=== PATIENT | female | born 1990 | race Caucasian/White ===

== ENCOUNTER 2017-09-25 19:03 | Emergency (ER) | payer OTHER ==
--- NOTE | 2017-09-25 19:36 | EDPHYS ---
Physician Documentation [facility] Name: Rosy Cote Age: 26 yrs Sex: Female : 1990 Arrival Date: 09/25/2017 Time: 19:04 Bed 23 Private MD: ED Physician Elbert Zheng HPI: 09/25 19:32 This 26 yrs old Female presents to ER via Ambulatory with complaints of Fall rn Injury, 15 week preg cramping. 19:32 Details of fall: The patient fell from an upright position, while walking. Onset: The rn symptoms/episode began/occurred just prior to arrival. Associated injuries: The patient sustained both knees. Severity of symptoms: At their worst the symptoms were mild, in the emergency department the symptoms are unchanged. The patient has not experienced similar symptoms in the past. at 15 weeks with previously confirmed IUP by U/S presents after falling onto knees, no abd trauma, states knees and legs are fine but felt mild abd cramping, no vaginal bleeding or leakage of fluid, has OB appt tomorrow. . 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 - Social history:: Smoking status: Patient/guardian denies using tobacco. - Family history:: not pertinent. - Hospitalizations: : No recent hospitalization is reported. ROS: 19:32 Constitutional: Negative for fever, chills, and weight loss, Eyes: Negative for injury, rn pain, redness, and discharge, Neck: Negative for injury, pain, and swelling, Cardiovascular: Negative for chest pain, palpitations, and edema, Respiratory: Negative for shortness of breath, cough, wheezing, and pleuritic chest pain, Abdomen/GI: Negative for nausea, vomiting, diarrhea, and constipation, Back: Negative for injury and pain, : Negative for injury, bleeding, discharge, and swelling, MS/Extremity: Negative for injury and deformity, Skin: Negative for injury, rash, and discoloration, Neuro: Negative for headache, weakness, numbness, tingling, and seizure. Exam: 19:32 Constitutional: This is a well developed, well nourished patient who is awake, alert, rn and in no acute distress. Head/Face: Normocephalic, atraumatic. Abdomen/GI: Soft, non-tender, with normal bowel sounds. No distension or tympany. No guarding or rebound. No evidence of tenderness throughout. Back: No spinal tenderness. No costovertebral tenderness. Full range of motion. MS/ Extremity: Pulses equal, no cyanosis. Neurovascular intact. Full, normal range of motion. Equal circumference. Neuro: Awake and alert, GCS 15, oriented to person, place, time, and situation. Cranial nerves II-XII grossly intact. Motor strength 5/5 in all extremities. Sensory grossly intact. Vital Signs: 19:10 BP 124 / 72; Pulse 97; Resp 18; Temp 97.8; Pulse Ox 100% on R/A; Weight 132.9 kg; aj Height 5 ft. 10 in. (177.80 cm); Pain 6/10; 19:42 BP 139 / 76; Pulse 90; Resp 17; Pulse Ox 99% on R/A; kr2 19:10 Body Mass Index 42.04 (132.90 kg, 177.80 cm) aj Procedures: 19:32 Ultrasound: Type: OB, performed by the emergency department physician, Good rn movement, good fluid, no evidence of uterine rupture/hematoma, placenta anterior, FHT 150, showed all images to patient and . . MDM: 19:19 Patient medically screened. rn 19:32 Differential diagnosis: knee contusion, abd cramping. Data reviewed: vital signs, rn nurses notes, radiologic studies, ultrasound, and as a result, I will discharge patient. Counseling: I had a detailed discussion with the patient and/or guardian regarding: the historical points, exam findings, and any diagnostic results supporting the discharge/admit diagnosis, radiology results, the need for outpatient follow up, to return to the emergency department if symptoms worsen or persist or if there are any questions or concerns that arise at home. Special discussion: I discussed with the patient/guardian in detail that at this point there is no indication for admission to the hospital. It is understood, however, that if the symptoms persist or worsen the patient needs to return immediately for re-evaluation. Administered Medications: No medications were administered Disposition: 09/25/17 19:35 Discharged to Home. Impression: Contusion of left knee, Contusion of right knee, Intrauterine , no complications. - Condition is Stable. - Discharge Instructions: Abdominal Pain During , Contusion, Medicines During , Knee Pain. - Medication Reconciliation Form, Thank You Letter, Antibiotic Education, Prescription Opioid Use form. - Follow up: Private Physician; When: As needed; Reason: Recheck today's complaints, Re-evaluation by your physician. - Problem is new. - Symptoms have improved. Signatures: Rossy Mirza RN RN Elbert Hanson MD MD rn Reaves, Karey, RN RN kr2
--- NOTE | 2017-09-25 19:36 | ER ---
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 Reports "cramping" in right hip. Denies vaginal bleeding. 19:10 Transition of care: patient was not received from another setting of care. Onset of aj symptoms was September 25, 2017. Care prior to arrival: None. 19:10 Method Of Arrival: Ambulatory 19:10 Acuity: VITA 3 Triage Assessment: 19:10 General: Appears in no apparent distress. comfortable, Behavior is calm, cooperative, aj appropriate for age. Pain: Complains of pain in right hip Pain currently is 6 out of 10 on a pain scale. Neuro: Level of Consciousness is awake, alert, obeys commands, Oriented to person, place, time, situation. Respiratory: Airway is patent Respiratory effort is even, unlabored, Respiratory pattern is regular, symmetrical. : Denies vaginal bleeding. Derm: Skin is intact, is healthy with good turgor, Skin is pink, warm \\T\\ dry. normal. 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 - Social history:: Smoking status: Patient/guardian denies using tobacco. - Family history:: not pertinent. - Hospitalizations: : No recent hospitalization is reported. Screenin:38 Abuse screen: Denies threats or abuse. Denies injuries from another. Nutritional kr2 screening: No deficits noted. Tuberculosis screening: No symptoms or risk factors identified. Fall Risk None identified. Assessment: 19:25 General: Appears in no apparent distress. comfortable, well groomed, well developed, kr2 well nourished, Behavior is calm, cooperative, appropriate for age. Pain: Complains of pain in right hip Pain currently is 5 out of 10 on a pain scale. Quality of pain is described as crampy, Pain began suddenly, Is continuous. Neuro: Level of Consciousness is awake, alert, obeys commands, Oriented to person, place, time, situation, Appropriate for age. Cardiovascular: Capillary refill < 3 seconds in bilateral fingers Patient's skin is warm and dry. Respiratory: Airway is patent Respiratory effort is even, unlabored, Respiratory pattern is regular, symmetrical. GI: Abdomen is flat, non-distended. : No signs and/or symptoms were reported regarding the genitourinary system. Reports she is 15 weeks , denies vaginal bleeding or vaginal pain. EENT: Oral mucosa is moist. Derm: Skin is intact, is healthy with good turgor, Skin is pink, warm \\T\\ dry. Musculoskeletal: Circulation, motion, and sensation intact. Vital Signs: 19:10 BP 124 / 72; Pulse 97; Resp 18; Temp 97.8; Pulse Ox 100% on R/A; Weight 132.9 kg; aj Height 5 ft. 10 in. (177.80 cm); Pain 6/10; 19:42 BP 139 / 76; Pulse 90; Resp 17; Pulse Ox 99% on R/A; kr2 19:10 Body Mass Index 42.04 (132.90 kg, 177.80 cm) ED Course: 19:04 Patient arrived in ED. es 19:10 Arm band placed on left wrist. Patient placed in an exam room. aj 19:11 Triage completed. aj 19:15 Paty Vang, MOJGAN is Primary Nurse. kr2 19:19 Elbert Zheng MD is Attending Physician. rn 19:38 Patient has correct armband on for positive identification. Bed in low position. Call kr2 light in reach. Side rails up X 1. Pulse ox on. NIBP on. Door closed. Verbal reassurance given. Head of bed elevated. 19:39 No provider procedures requiring assistance completed. Patient did not have IV access kr2 during this emergency room visit. Administered Medications: No medications were administered Outcome: 19:35 Discharge ordered by . rn 19:39 Discharged to home ambulatory, with family. kr2 19:39 Condition: good 19:39 Discharge instructions given to patient, family, Instructed on discharge instructions, follow up and referral plans. Demonstrated understanding of instructions, follow-up care. 19:42 Patient left the ED. kr2 Signatures: Rossy Mirza RN RN aj Salyer, Edna es Nieto, Roman, MD MD rn Reaves, Karey, RN RN kr2 Corrections: (The following items were deleted from the chart) 19:11 19:10 Presenting complaint: aj aj 19:12 19:10 Acuity: VITA 4 aj aj
== END 2017-09-25 19:42 | disposition home or self-care (01) ==
LOC: ER 19:03
DX: S80.02XA Contusion of left knee, initial encounter (principal); S80.01XA Contusion of right knee, initial encounter; W18.39XA Other fall on same level, initial encounter; Y93.01 Activity, walking, marching and hiking; Y92.9 Unspecified place or not applicable; Z88.7 Allergy status to serum and vaccine; Z3A.15 15 weeks gestation of pregnancy
CPT/HCPCS: 99283

== ENCOUNTER 2017-10-31 08:52 | Emergency (ER) | payer OTHER ==
[2017-10-31] MEDS ORDERED: ACETAMINOPHEN 500 MG TAB ONE (09:08)
--- NOTE | 2017-10-31 10:37 | RAD REPORT ---
EXAM DESCRIPTION: RAD - Ankle Right 3 View - 10/31/2017 9:47 am CLINICAL HISTORY: Right ankle pain status post fall FINDINGS: No fracture or dislocation is seen.
--- NOTE | 2017-10-31 10:40 | RAD REPORT ---
EXAM DESCRIPTION: RAD - Tib Fib Right - 10/31/2017 9:47 am CLINICAL HISTORY: Right leg pain status post fall FINDINGS: No fracture is seen
--- NOTE | 2017-10-31 11:32 | EDPHYS ---
Physician Documentation [facility] Name: Rosy Cote Age: 26 yrs Sex: Female : 1990 Arrival Date: 10/31/2017 Time: 08:56 Bed 6 Private MD: ED Physician Salvador Arambula HPI: 10/31 10:00 This 26 yrs old Female presents to ER via EMS with complaints of Fall Injury, pm1 Leg Injury. 10:00 Onset: The symptoms/episode began/occurred just prior to arrival. Associated injuries: pm1 The patient sustained right ankle, right richmond. Severity of symptoms: in the emergency department the symptoms are actually worse. The patient has not experienced similar symptoms in the past. Patient with ultrasound of her baby last week for 20 week period. Patient walking and stepped in pothole and rolled her right foot inward. Patient with pain to lateral aspect of right ankle and right richmond. No injury to head, neck or abdomen. 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 - Social history:: Smoking status: Patient/guardian denies using tobacco, Patient/guardian denies using alcohol, street drugs. ROS: 10:00 Constitutional: Negative for fever, chills, and weight loss, Eyes: Negative for injury, pm1 pain, redness, and discharge, ENT: Negative for injury, pain, and discharge, Neck: Negative for injury, pain, and swelling, Cardiovascular: Negative for chest pain, palpitations, and edema, Respiratory: Negative for shortness of breath, cough, wheezing, and pleuritic chest pain. 10:00 Abdomen/GI: Negative for abdominal pain, nausea, vomiting, diarrhea, and constipation, Back: Negative for injury and pain. 10:00 : Negative for injury, bleeding, discharge, and swelling, Neuro: Negative for headache, weakness, numbness, tingling, and seizure. 10:00 MS/extremity: Positive for pain, tenderness, of the right ankle and right richmond. 10:00 Skin: Positive for abrasion(s), of the right richmond. Exam: 10:00 Constitutional: This is a well developed, well nourished patient who is awake, alert, pm1 and in no acute distress. Head/Face: Normocephalic, atraumatic. Eyes: Pupils equal round and reactive to light, extra-ocular motions intact. Lids and lashes normal. Conjunctiva and sclera are non-icteric and not injected. Cornea within normal limits. Periorbital areas with no swelling, redness, or edema. ENT: Nares patent. No nasal discharge, no septal abnormalities noted. Tympanic membranes are normal and external auditory canals are clear. Oropharynx with no redness, swelling, or masses, exudates, or evidence of obstruction, uvula midline. Mucous membranes moist. Neck: Trachea midline, no thyromegaly or masses palpated, and no cervical lymphadenopathy. Supple, full range of motion without nuchal rigidity, or vertebral point tenderness. No Meningismus. Chest/axilla: Normal chest wall appearance and motion. Nontender with no deformity. No lesions are appreciated. Cardiovascular: Regular rate and rhythm with a normal S1 and S2. No gallops, murmurs, or rubs. Normal PMI, no JVD. No pulse deficits. Respiratory: Lungs have equal breath sounds bilaterally, clear to auscultation and percussion. No rales, rhonchi or wheezes noted. No increased work of breathing, no retractions or nasal flaring. 10:00 Back: No spinal tenderness. No costovertebral tenderness. Full range of motion. 10:00 Abdomen/GI: Inspection: gravid appearance, is noted, Bowel sounds: normal, Palpation: abdomen is soft and non-tender. 10:00 Skin: Appearance: normal except for affected area, injury, abrasion(s), small abrasion noted, of the right richmond. 10:00 Neuro: Orientation: is normal, Motor: moves all fours. Vital Signs: 09:00 BP 112 / 62; Pulse 85; Resp 18; Temp 98(O); Pulse Ox 99% on R/A; Weight 128.82 kg (R); sv Height 5 ft. 10 in. (177.80 cm) (R); Pain 10/10; 09:33 BP 108 / 47; Pulse 91; Resp 18; Pulse Ox 98% ; sv 12:00 BP 110 / 60; Pulse 85; Resp 17 S; Pulse Ox 99% on R/A; sg 09:00 Body Mass Index 40.75 (128.82 kg, 177.80 cm) sv MDM: 09:02 Patient medically screened. pm1 11:05 Data reviewed: vital signs. Data interpreted: Pulse oximetry: on room air is 98 %. pm1 Interpretation: normal. Counseling: I had a detailed discussion with the patient and/or guardian regarding: the historical points, exam findings, and any diagnostic results supporting the discharge/admit diagnosis, radiology results, the need for outpatient follow up, for definitive care, a orthopedic surgeon, to return to the emergency department if symptoms worsen or persist or if there are any questions or concerns that arise at home. 10/31 09:04 Order name: Ankle Right 3 View XRAY; Complete Time: 10:56 pm1 10/31 09:04 Order name: Tib Fib Right XRAY; Complete Time: 10:56 pm1 10/31 09:04 Order name: FHT's; Complete Time: 09:23 pm1 10/31 11:04 Order name: Crutches; Complete Time: 11:41 pm1 10/31 11:04 Order name: Posterior Orthoglass Ankle Splint; Complete Time: 11:41 pm1 Administered Medications: 09:20 Drug: Tylenol 500 mg Route: PO; sv Disposition: 22:19 Co-signature as Attending Physician, Salvador Arambula MD I agree with the assessment and kdr plan of care. Disposition: 10/31/17 11:31 Discharged to Home. Impression: Pain in right ankle and joints of right foot - possible fracture of posterior process of talus, lateral tubercle vs. os trigum, Sprain of unspecified ligament of right ankle. - Condition is Stable. - Discharge Instructions: Ankle Fracture, Cast or Splint Care, Crutch Use. - Medication Reconciliation Form, Thank You Letter form. - Work release form (10/31/17 12:04). bd - Follow up: Emergency Department; When: As needed; Reason: Worsening of condition. Follow up: Tenzin Stern MD; When: 2 - 3 days; Reason: Recheck today's complaints, Continuance of care, Re-evaluation by your physician. - Problem is new. - Symptoms have improved. - Notes: Take tylenol as needed for pain Signatures: Dispatcher [employer] EDMS Ct Fernandes Patricia Stout RN RN Salvador Velez MD MD kdr Marinas, Patrick, JUNIOR SYSTEMS ENGINEER JUNIOR SYSTEMS ENGINEER pm1 Corrections: (The following items were deleted from the chart) 11:05 11:04 Splint - Leg: Short Leg ordered. pm1 pm1 11:34 11:31 10/31/2017 11:31 Discharged to Home. Impression: Pain in right ankle and joints pm1 of right foot. Condition is Stable. Forms are Medication Reconciliation Form, Thank You Letter, Antibiotic Education, Prescription Opioid Use. Follow up: Emergency Department; When: As needed; Reason: Worsening of condition. Follow up: Tenzin Stern; When: 2 - 3 days; Reason: Recheck today's complaints, Continuance of care, Re-evaluation by your physician. Problem is new. Symptoms have improved. pm1 12:02 11:34 10/31/2017 11:31 Discharged to Home. Impression: Pain in right ankle and joints bd of right foot - possible fracture of posterior process of talus, lateral tubercle vs. os trigum; Sprain of unspecified ligament of right ankle. Condition is Stable. Forms are Medication Reconciliation Form, Thank You Letter, Antibiotic Education, Prescription Opioid Use. Follow up: Emergency Department; When: As needed; Reason: Worsening of condition. Follow up: Tenzin Stern; When: 2 - 3 days; Reason: Recheck today's complaints, Continuance of care, Re-evaluation by your physician. Problem is new. Symptoms have improved. pm1
--- NOTE | 2017-10-31 11:32 | ER ---
Nurse's Notes [facility] Name: Rosy Cote Age: 26 yrs Sex: Female : 1990 Arrival Date: 10/31/2017 Time: 08:56 Bed 6 Private MD: Diagnosis: Pain in right ankle and joints of right foot-possible fracture of posterior process of talus, lateral tubercle vs. os trigum;Sprain of unspecified ligament of right ankle Presentation: 10/31 08:50 Presenting complaint: EMS states: tripped and fell onto concrete ground landing on RLE. sv Abrasion noted with mild swelling. Currently 20 weeks . BP 125/80 HR 92 100% RA. Denies head injury or LOC. Transition of care: patient was not received from another setting of care. Onset of symptoms was October 31, 2017. Care prior to arrival: None. 08:50 Method Of Arrival: EMS: [facility] sv 08:50 Acuity: VITA 4 sv 08:51 Initial Sepsis Screen: Does the patient meet any 2 criteria? No. Patient's initial sv sepsis screen is negative. Does the patient have a suspected source of infection? No. Patient's initial sepsis screen is negative. Triage Assessment: 09:01 General: Appears in no apparent distress. uncomfortable, well developed, Behavior is sv calm, cooperative, appropriate for age. Pain: Complains of pain in right mid richmond and anterior aspect of right ankle Pain does not radiate. Pain currently is 10 out of 10 on a pain scale. Pain began 30 min ago. Is continuous, Current management - is no interventions. EENT: No signs and/or symptoms were reported regarding the EENT system. Neuro: Level of Consciousness is awake, alert, obeys commands, Oriented to person, place, time, situation, Moves all extremities. Full function Speech is normal. Cardiovascular: Capillary refill < 3 seconds is brisk in right toes Patient's skin is warm and dry. Pulses are palpable in right posterior tibial artery and right dorsalis pedis artery. Respiratory: Respiratory effort is even, unlabored, Respiratory pattern is regular, symmetrical. GI: Patient currently denies abdominal pain, cramping. : No signs and/or symptoms were reported regarding the genitourinary system. Derm: Skin is pink, warm \T\ dry. Musculoskeletal: Range of motion: intact in all extremities. 09:01 Injury Description: Abrasion sustained to lateral aspect of right calf is dried blood sv was sustained 30-60 minutes ago. 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 - Social history:: Smoking status: Patient/guardian denies using tobacco, Patient/guardian denies using alcohol, street drugs. Screenin:03 Abuse screen: Denies threats or abuse. Denies injuries from another. Nutritional sv screening: No deficits noted. Tuberculosis screening: No symptoms or risk factors identified. Fall Risk None identified. Assessment: 09:23 Reassessment: Patient appears in no apparent distress at this time. No changes from sv previously documented assessment. Patient and/or family updated on plan of care and expected duration. Pain level reassessed. Patient is alert, oriented x 3, equal unlabored respirations, skin warm/dry/pink. Vital Signs: 09:00 BP 112 / 62; Pulse 85; Resp 18; Temp 98(O); Pulse Ox 99% on R/A; Weight 128.82 kg (R); sv Height 5 ft. 10 in. (177.80 cm) (R); Pain 10/10; 09:33 BP 108 / 47; Pulse 91; Resp 18; Pulse Ox 98% ; sv 12:00 BP 110 / 60; Pulse 85; Resp 17 S; Pulse Ox 99% on R/A; sg 09:00 Body Mass Index 40.75 (128.82 kg, 177.80 cm) sv Vitals: 09:23 Heart Tones 160. sv ED Course: 08:56 Patient arrived in ED. sv 08:57 Patricia Gamble RN is Primary Nurse. sv 08:59 Gerber Hurley NP is PHCP. pm1 08:59 Salvador Arambula MD is Attending Physician. pm1 08:59 Triage completed. sv 09:00 Patient has correct armband on for positive identification. Bed in low position. Call sv light in reach. Side rails up X2. Pulse ox on. NIBP on. Door closed. Warm blanket given. Ice pack to injury. Head of bed elevated. 09:01 Arm band placed on right wrist. sv 09:03 Nurse Practitioner and/or Physician Psychopaedic Nurse to see patient. sv 09:32 Awaiting radiology results. sv 09:44 X-ray completed. Portable x-ray completed in exam room. Patient tolerated procedure jb2 well. Note: PT SHIELDED FROM NECK TO MID FEMUR FOR XRAYS. 09:47 Ankle Right 3 View XRAY In Process Unspecified. EDMS 09:47 Tib Fib Right XRAY In Process Unspecified. EDMS 11:22 Tenzin Stern MD is Referral Physician. pm1 11:39 Orthoglass splint: Posterior short lleg splint applied on right leg. Pedal pulse jb1 present and within normal limits before and after application of splint. Capillary refill was two seconds before and after application of splint. 12:00 No provider procedures requiring assistance completed. Patient did not have IV access sg during this emergency room visit. Administered Medications: 09:20 Drug: Tylenol 500 mg Route: PO; sv Outcome: 11:31 Discharge ordered by . pm1 12:00 Discharged to home via wheelchair, with family. sg 12:00 Condition: good 12:00 Discharge instructions given to patient, family, Instructed on discharge instructions, follow up and referral plans. safety practices, crutch walking, splint care Demonstrated understanding of instructions, follow-up care, crutch walking, splint care. 12:02 Patient left the ED. bd Signatures: Dispatcher [employer] EDMS Jose Guadalupe Ibarra jb1 Ct Fernandes Stephanie, RN RN sv Gay, Steven, RN RN Shane Dumont2 Gerber Hurley NP MIXING MACHINE OPERATOR pm1
[2017-10-31 12:06] VITALS: TEMP 98
[2017-10-31 12:07] VITALS: BP 108/47; O2SAT 98
== END 2017-10-31 12:02 | disposition home or self-care (01) ==
LOC: ER 08:52
DX: S93.401A Sprain of unspecified ligament of right ankle, initial encounter (principal); X58.XXXA Exposure to other specified factors, initial encounter; Y93.01 Activity, walking, marching and hiking; Y92.9 Unspecified place or not applicable; Z88.7 Allergy status to serum and vaccine; Z3A.20 20 weeks gestation of pregnancy
CPT/HCPCS: 99284

== ENCOUNTER 2018-01-12 01:10 | Emergency (ER) | payer OTHER ==
[2018-01-12] MEDS ORDERED: NA CHLORIDE 0.9% 1,000 ML ONE (01:36)
[2018-01-12] MEDS ORDERED: ACETAMINOPHEN 500 MG TAB ONE (01:36)
[2018-01-12] MEDS ORDERED: PROMETHAZINE 25 MG/ML VIAL ONE (01:48)
[2018-01-12 01:56] LABS: Absolute Lymphocytes (CBC) 2.7 K/uL (0.7-4.9); Absolute Monocytes 0.8 K/uL (0.1-1.3); Absolute Neutrophil 8.3 K/uL (1.8-8.0); Basophils % 0.8 % (0-1.3); Eosinophils % 1.7 % (0-4.4); Hematocrit 33.4 % (36.0-45.0); MCH 29.2 pg (27.0-35.0); MPV 8.9 fL (7.6-11.3); Monocytes % 6.9 % (3.3-12.3); RBC Red Blood Cell Count 3.89 M/uL (3.86-4.86)
[2018-01-12 02:10] LABS: Urine Blood NEGATIVE (NEG); Urine Glucose NEGATIVE (NEG); Urine Protein NEGATIVE (NEG)
[2018-01-12 02:13] LABS: ALT/SGPT 11 U/L (12-78); AST/SGOT 7 U/L (15-37); Albumin 2.7 g/dL (3.4-5.0); Alkaline Phosphatase 61 U/L (45-117); BUN Blood Urea Nitrogen 5 mg/dL (7-18); Bicarbonate 21 mmol/L (21-32); Bilirubin Direct < 0.1 mg/dL (0-0.2); Bilirubin Total 0.3 mg/dL (0.2-1.0); Glucose Level 97 mg/dL (74-106); Lipase 115 U/L (73-393); Potassium 3.6 mmol/L (3.5-5.1); Protein, Total 6.5 g/dL (6.4-8.2); Sodium Level 140 mmol/L (136-145)
[2018-01-12 03:02] LABS: Urine Bacteria 20-50 /HPF (<20); Urine RBC NONE SEEN /HPF (NONE SEEN)
[2018-01-12 03:03] LABS: Urine Culture Reflex Order REFLEXED
[2018-01-12] MEDS ORDERED: CEFTRIAXONE/SWI 1gm 1 GM/10 ML SYR ONE (03:29)
--- NOTE | 2018-01-12 03:31 | ER ---
Nurse's Notes [facility] Name: Rosy Cote Age: 27 yrs Sex: Female : 1990 Arrival Date: 01/12/2018 Time: 01:11 Bed 8 Private MD: Diagnosis: dizziness;headache;acute UTI Presentation: 01/12 01:19 Presenting complaint: Patient states: She is feeling light headed, dizzy and has a ea headache. Reports symptoms started an hour ago. Pt states she was diagnosed with anemia about a month ago. Transition of care: patient was not received from another setting of care. Onset of symptoms was January 12, 2018. Risk Assessment: Do you want to hurt yourself or someone else? Patient reports no desire to harm self or others. Initial Sepsis Screen: Does the patient meet any 2 criteria? HR > 90 bpm. Yes Does the patient have a suspected source of infection? No. Patient's initial sepsis screen is negative. Care prior to arrival: Medication(s) given: Iron pill. 01:19 Method Of Arrival: Ambulatory ea 01:19 Acuity: VITA 3 ea Triage Assessment: 01:24 Headache History: Denies prior headaches. General: Appears uncomfortable, Behavior is ea crying. Pain: Complains of pain in headache Pain currently is 7 out of 10 on a pain scale. Quality of pain is described as aching, Pain began 1 hour ago. Also complains of dizzy. Neuro: Level of Consciousness is awake, alert, obeys commands, Oriented to person, place, time, situation, Speech is normal, Denies weakness dizziness, headache light headedness. Cardiovascular: Patient's skin is warm and dry. Respiratory: Airway is patent Respiratory effort is even, unlabored, Respiratory pattern is regular, symmetrical. 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 - Social history:: Smoking status: Patient/guardian denies using tobacco. - Ebola Screening: : No symptoms or risks identified at this time. - Family history:: not pertinent. - Hospitalizations: : No recent hospitalization is reported. Screenin:26 Abuse screen: Denies threats or abuse. Nutritional screening: No deficits noted. ea Tuberculosis screening: No symptoms or risk factors identified. Fall Risk None identified. Assessment: 01:28 General: Appears in no apparent distress. uncomfortable, Behavior is cooperative, tl2 appropriate for age, anxious. Pain: Complains of pain in headache Pain currently is 3 out of 10 on a pain scale. Neuro: Level of Consciousness is awake, alert, obeys commands, Oriented to person, place, time, situation, Reports dizziness. Cardiovascular: Denies chest pain. Respiratory: Airway is patent Respiratory effort is even, unlabored, Respiratory pattern is regular, symmetrical. GI: Reports nausea. : No signs and/or symptoms were reported regarding the genitourinary system. Derm: Skin is pink, warm \T\ dry. 02:19 Reassessment: Patient appears in no apparent distress at this time. Patient and/or tl2 family updated on plan of care and expected duration. Pain level reassessed. Patient is alert, oriented x 3, equal unlabored respirations, skin warm/dry/pink. Patient states feeling better. 03:41 Reassessment: PT D/C HOME AMBULATORY WITH FAMILY, DX WITH ACUTE UTI. bp Vital Signs: 01:23 BP 143 / 89; Pulse 92; Resp 20; Temp 98; Pulse Ox 97% on R/A; Weight 127.91 kg; Height tl2 5 ft. 10 in. (177.80 cm); 02:19 Pulse 73; Resp 18; Pulse Ox 97% on R/A; Pain 1/10; tl2 03:25 BP 108 / 53; Pulse 70; Resp 18; Pulse Ox 97% on R/A; tl2 01:23 Body Mass Index 40.46 (127.91 kg, 177.80 cm) tl2 Vitals: 01:48 Heart Tones 150. tl2 ED Course: 01:11 Patient arrived in ED. ds1 01:14 Bg Ventura MD is Attending Physician. wa 01:14 Shady Nuñez, MOJGAN is Primary Nurse. bp 01:22 Triage completed. ea 01:26 Arm band placed on left wrist. Patient placed in an exam room, in the treatment room. ea 01:35 Inserted saline lock: 22 gauge in right wrist, using aseptic technique. Blood collected.tl2 01:43 Patient has correct armband on for positive identification. Bed in low position. Call tl2 light in reach. Side rails up X 1. 03:41 No provider procedures requiring assistance completed. IV discontinued, intact, bp bleeding controlled, No redness/swelling at site. Pressure dressing applied. Administered Medications: 01:42 Drug: NS 0.9% 1000 ml Route: IV; Rate: 1 bolus; Site: right wrist; tl2 03:28 Follow up: IV Status: Completed infusion; IV Intake: 1000ml tl2 01:42 Drug: Tylenol 1000 mg Route: PO; tl2 03:27 Follow up: Response: No adverse reaction; Pain is decreased tl2 01:54 Drug: Phenergan 6.25 mg {Note: given in NS bolus.} Route: IVP; Site: right wrist; tl2 03:27 Follow up: Response: No adverse reaction; Nausea is decreased tl2 03:28 Drug: Rocephin - (cefTRIAXone) 1 grams Route: IVPB; Infused Over: 30 mins; Site: right tl2 wrist; 03:40 Follow up: IV Status: Completed infusion bp Intake: 03:28 IV: 1000ml; Total: 1000ml. tl2 Outcome: 03:31 Discharge ordered by . nusrat 03:41 Discharged to home ambulatory, with family. bp 03:41 Condition: stable 03:41 Discharge instructions given to patient, Instructed on discharge instructions, follow up and referral plans. medication usage, Demonstrated understanding of instructions, follow-up care, medications, Prescriptions given X 1. 03:42 Patient left the ED. bp Signatures: Aletha Mckinney ds1 Maren Meng RN RN tl2 Katy Chappell RN RN ea Appiah, William, MD MD wa Peltier, Brian RN RN bp Corrections: (The following items were deleted from the chart) 01:30 01:23 BP 143 / 89; Pulse 125bpm; Resp 20bpm; Pulse Ox 97% RA; 127.91 kg; Height 5 ft. tl2 10 in.; BMI: 40.4; ea 03:25 01:23 BP 143 / 89; Pulse 92bpm; Resp 20bpm; Pulse Ox 97% RA; 127.91 kg; Height 5 ft. 10 tl2 in.; BMI: 40.4; tl2
--- NOTE | 2018-01-12 03:31 | EDPHYS ---
Physician Documentation [facility] Name: Rosy Cote Age: 27 yrs Sex: Female : 1990 Arrival Date: 01/12/2018 Time: 01:11 Bed 8 Private MD: ED Physician Bg Ventura HPI: 01/12 01:34 This 27 yrs old Female presents to ER via Ambulatory with complaints of wa Headache, 30 Wks Preg. 01:34 The patient presents with dizziness, feeling faint, lightheadedness, 3/10 PIERRE, nausea. wa Onset: The symptoms/episode began/occurred today. Context: denies prior episodes. 30 weeks preg. denies abd pain, or vomiting. states feels very lightheaded. Modifying factors: The symptoms are alleviated by nothing, the symptoms are aggravated by nothing. Associated signs and symptoms: Pertinent positives: nausea, Pertinent negatives: abdominal pain, blurred vision, chest pain, palpitations, shortness of breath, vomiting. Severity of symptoms: At their worst the symptoms were moderate in the emergency department the symptoms are unchanged. Patient's baseline: Neuro: alert and fully oriented, Motor: no deficits, Ambulation: walks without assistance, Speech: normal. The patient has not experienced similar symptoms in the past. The patient has not recently seen a physician. 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 - Social history:: Smoking status: Patient/guardian denies using tobacco. - Ebola Screening: : No symptoms or risks identified at this time. - Family history:: not pertinent. - Hospitalizations: : No recent hospitalization is reported. ROS: 01:37 Constitutional: Negative for fever, chills, and weight loss, Eyes: Negative for injury, wa pain, redness, and discharge, ENT: Negative for injury, pain, and discharge, Neck: Negative for injury, pain, and swelling, Cardiovascular: Negative for chest pain, palpitations, and edema, Respiratory: Negative for shortness of breath, cough, wheezing, and pleuritic chest pain, Back: Negative for injury and pain, : Negative for injury, bleeding, discharge, and swelling, MS/Extremity: Negative for injury and deformity, Skin: Negative for injury, rash, and discoloration, Psych: Negative for depression, anxiety, suicide ideation, homicidal ideation, and hallucinations. 01:37 Abdomen/GI: Positive for nausea, Negative for vomiting, diarrhea. 01:37 Neuro: Positive for dizziness, headache, Negative for gait disturbance, loss of consciousness, syncope, weakness. 01:37 All other systems are negative. Exam: 01:38 Constitutional: This is a well developed, well nourished patient who is awake, alert, wa and in no acute distress. Head/Face: Normocephalic, atraumatic. Eyes: Pupils equal round and reactive to light, extra-ocular motions intact. Lids and lashes normal. Conjunctiva and sclera are non-icteric and not injected. Cornea within normal limits. Periorbital areas with no swelling, redness, or edema. ENT: Nares patent. No nasal discharge, no septal abnormalities noted. Tympanic membranes are normal and external auditory canals are clear. Oropharynx with no redness, swelling, or masses, exudates, or evidence of obstruction, uvula midline. Mucous membranes moist. Neck: Trachea midline, no thyromegaly or masses palpated, and no cervical lymphadenopathy. Supple, full range of motion without nuchal rigidity, or vertebral point tenderness. No Meningismus. Chest/axilla: Normal chest wall appearance and motion. Nontender with no deformity. No lesions are appreciated. Cardiovascular: Regular rate and rhythm with a normal S1 and S2. No gallops, murmurs, or rubs. Normal PMI, no JVD. No pulse deficits. Respiratory: Lungs have equal breath sounds bilaterally, clear to auscultation and percussion. No rales, rhonchi or wheezes noted. No increased work of breathing, no retractions or nasal flaring. Back: No spinal tenderness. No costovertebral tenderness. Full range of motion. Skin: Warm, dry with normal turgor. Normal color with no rashes, no lesions, and no evidence of cellulitis. MS/ Extremity: Pulses equal, no cyanosis. Neurovascular intact. Full, normal range of motion. Neuro: Awake and alert, GCS 15, oriented to person, place, time, and situation. Cranial nerves II-XII grossly intact. Motor strength 5/5 in all extremities. Sensory grossly intact. Cerebellar exam normal. Normal gait. Psych: Awake, alert, with orientation to person, place and time. Behavior, mood, and affect are within normal limits. 01:38 Abdomen/GI: Inspection: abdomen appears normal, Bowel sounds: normal, in all quadrants, Palpation: abdomen is soft and non-tender, in all quadrants. Vital Signs: 01:23 BP 143 / 89; Pulse 92; Resp 20; Temp 98; Pulse Ox 97% on R/A; Weight 127.91 kg; Height tl2 5 ft. 10 in. (177.80 cm); 02:19 Pulse 73; Resp 18; Pulse Ox 97% on R/A; Pain 1/10; tl2 03:25 BP 108 / 53; Pulse 70; Resp 18; Pulse Ox 97% on R/A; tl2 01:23 Body Mass Index 40.46 (127.91 kg, 177.80 cm) tl2 MDM: 01:14 Patient medically screened. 01:38 Differential diagnosis: r/o pre-eclampsia, dysrhythmia, infection. . 02:40 Data reviewed: vital signs, nurses notes. 03:06 Test interpretation: by ED physician or midlevel provider: ECG, EKG: HR 89. within [facility] limits. 03:29 Test interpretation: by ED physician or midlevel provider: labs: no proteinuria. nml ks liver enzymes. UA noted for pyuria. Response to treatment: the patient's symptoms have markedly improved after treatment, the patient's symptoms have resolved after treatment. 03:34 ED course: FHT: 150. 01/12 01:15 Order name: Basic Metabolic Panel; Complete Time: 02:01/12 01:15 Order name: CBC with Diff; Complete Time: 02:01/12 01:15 Order name: Hepatic Function; Complete Time: :01/12 01:15 Order name: Lipase; Complete Time: 02:01/12 01:15 Order name: Urine Microscopic Only; Complete Time: 03:01/12 01:42 Order name: Urine Dipstick--Ancillary (enter results); Complete Time: 02: [facility] 01/12 01:15 Order name: IV Saline Lock; Complete Time: 01:27 ks 01/12 01:15 Order name: Labs collected and sent; Complete Time: : ks 01/12 01:42 Order name: Urine --Ancillary (enter results); Complete Time: 02:31 [facility] 01/12 03:03 Order name: Urine Culture [facility] 01/12 01:15 Order name: Urine Dipstick-Ancillary (obtain specimen); Complete Time: 01:42 ks 01/12 01:29 Order name: Heart Tones; Complete Time: 01:41 ks 01/12 01:30 Order name: EKG - Nurse/Tech; Complete Time: 01:47 ks Administered Medications: 01:42 Drug: NS 0.9% 1000 ml Route: IV; Rate: 1 bolus; Site: right wrist; tl2 03:28 Follow up: IV Status: Completed infusion; IV Intake: 1000ml tl2 01:42 Drug: Tylenol 1000 mg Route: PO; tl2 03:27 Follow up: Response: No adverse reaction; Pain is decreased tl2 01:54 Drug: Phenergan 6.25 mg {Note: given in NS bolus.} Route: IVP; Site: right wrist; tl2 03:27 Follow up: Response: No adverse reaction; Nausea is decreased tl2 03:28 Drug: Rocephin - (cefTRIAXone) 1 grams Route: IVPB; Infused Over: 30 mins; Site: right tl2 wrist; 03:40 Follow up: IV Status: Completed infusion bp Disposition: 01/12/18 03:31 Discharged to Home. Impression: dizziness, headache, acute UTI. - Condition is Stable. - Discharge Instructions: Urinary Tract Infection, Adult, [id number], Dizziness, [id number]. - Prescriptions for Keflex 500 mg Oral Capsule - take 1 capsule by ORAL route every 12 hours for 5 days; 10 capsule. - Medication Reconciliation Form, Thank You Letter, Antibiotic Education, Prescription Opioid Use form. - Follow up: Private Physician; When: 2 - 3 days; Reason: Recheck today's complaints. - Problem is new. - Symptoms have improved. Signatures: Dispatcher [employer] EDAL Maren Meng RN RN tl2 Katy Chappell RN RN ea Appiah, William, MD MD wa Peltier, Brian, RN RN bp Corrections: (The following items were deleted from the chart) 03:42 03:31 01/12/2018 03:31 Discharged to Home. Impression: dizziness; headache; acute UTI. bp Condition is Stable. Forms are Medication Reconciliation Form, Thank You Letter, Antibiotic Education, Prescription Opioid Use. Follow up: Private Physician; When: 2 - 3 days; Reason: Recheck today's complaints. Problem is new. Symptoms have improved. wa
--- NOTE | 2018-01-12 08:16 | EKG ---
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
== END 2018-01-12 03:42 | disposition home or self-care (01) ==
LOC: ER 01:10
DX: O23.43 Unspecified infection of urinary tract in pregnancy, third trimester (principal); Z3A.30 30 weeks gestation of pregnancy; O26.893 Other specified pregnancy related conditions, third trimester; R51 Headache; R42 Dizziness and giddiness
CPT/HCPCS: 36415; 80048; 80076; 81003; 81015; 81025; 83690; 85025; 87086; 87088; 93005; 96361; 96374; 96375; 99284; J0696; J2550; J7030

== ENCOUNTER 2018-03-17 15:52 | Inpatient (IN) | payer OTHER ==
--- NOTE | 2018-03-18 20:30 | PREOPHP ---
Date of Admission: 03/17/2018 History Of Present Illness: Ms. Cote is a 27-year-old female, 2, para 1-0 -0-1, followed by me during this with issues of obesity, depression, and rubella nonimmunit y, mild anemia. She is now 40+ weeks gestation. She will be admitted for elective induction of labo r, secondary to 40+ week with favorable cervix. Past Medical History: Please see record. Family History: Please see record. Review of Systems: She reports no recent cough, cold, fever, or chills. No recent nausea or vomiting. She denies any b reast lumps. She denies any bowel or bladder issues. Her infant has been active. Physical Examination: General: female, in no apparent distress. Neck: Supple without adenopathy or thyromegaly. Lungs: Clear. Cardiac: Regular rate and rhythm without murmurs. Breasts: Not examined. Abdomen: Shows estimated weight of approximately 8+ pounds. Pelvic: Cervix noted to be 1+ cm, 50% effaced, vertex, and -2 station. Extremities: Trace lower extremity edema. Impression: Term , favorable cervix. Plan: The patient will be admitted for delivery. DACIA/MASHA Voice ID: [id number]
[2018-03-19] MEDS ORDERED: OXYTOCIN/LR 20 UNIT/1,000 ML BAG IV ONE (07:51)
[2018-03-19] MEDS ORDERED: PROMETHAZINE 25 MG/ML VIAL IV PRN (07:54)
[2018-03-19] MEDS ORDERED: BUTORPHANOL 1 MG/ML INJ IV PRN (07:54)
[2018-03-19] MEDS ORDERED: Ringers Lactate 1,000 ML IV PRN (07:54)
[2018-03-19] MEDS ORDERED: CARBOPROST TROME 250 MCG/ML IM PRN ×2 (07:54→17:24)
[2018-03-19] MEDS ORDERED: METHYLERGONOVINE 0.2MG/ML AMP IM PRN ×2 (07:54→17:24)
[2018-03-19] MEDS ORDERED: Ringers Lactate 1,000 ML IV SCH (08:00)
[2018-03-19] MEDS ORDERED: OXYTOCIN/LR 20 UNIT/1,000 ML BAG IV SCH ×2 (08:00→18:00)
--- NOTE | 2018-03-19 08:13 | P.PN ---
Date of Service: 03/19/18 Occasional ctx, reactive FHT's, cx same, unable to AROM currently. Will await ctx.
[2018-03-19 08:14] LABS: RPR Titer ND
[2018-03-19 08:22] LABS: Urine Appearance CLOUDY; Urine Bilirubin NEGATIVE (NEG); Urine Blood 3+ (NEG); Urine Color YELLOW; Urine Glucose NEGATIVE (NEG); Urine Protein NEGATIVE (NEG); Urine Specific Gravity 1.015 (1.005-1.030); Urine pH 6.5 (5.0-7.0)
[2018-03-19 08:23] LABS: Absolute Lymphocytes (CBC) 1.6 K/uL (0.7-4.9); Absolute Monocytes 0.7 K/uL (0.1-1.3); Absolute Neutrophil 6.5 K/uL (1.8-8.0); Basophils % 0.2 % (0-1.3); Eosinophils % 0.6 % (0-4.4); Hematocrit 34.4 % (36.0-45.0); Lymphocytes % 18.1 % (15.3-44.8); MCH 29.2 pg (27.0-35.0); MCV 84.2 fL (80-100); MPV 9.3 fL (7.6-11.3); Monocytes % 7.9 % (3.3-12.3); RBC Red Blood Cell Count 4.09 M/uL (3.86-4.86)
[2018-03-19 08:27] LABS: Urine Microscopic Reflex ORDER UMIC
[2018-03-19 08:33] LABS: Urine Bacteria 20-50 /HPF (<20); Urine Culture Reflex Order REFLEXED
[2018-03-19 09:18] VITALS: BMI 39.4
[2018-03-19] MEDS ORDERED: ROPIVACAINE HCL 100 ML IV PRN (09:38)
[2018-03-19] MEDS ORDERED: FENTANYL CITR 100 MCG/2 ML IV ONE (09:39)
[2018-03-19] MEDS ORDERED: ROPIVACAINE HCL 0.2% 20ML AMP IV ONE (09:39)
[2018-03-19] MEDS ORDERED: LIDOCAINE 1% 20 ML MDV IV ONE (10:42)
[2018-03-19] MEDS ORDERED: INFLUENZA VACCINE (for 3y+) 0.5 ML DOSE IMVAC ONE (11:00)
[2018-03-19] MEDS ORDERED: BUTORPHANOL 1 MG/ML INJ IV ONE (12:55)
--- NOTE | 2018-03-19 12:57 | P.PN ---
Cx 3 cm, pt. in pain. Will give Stadol 1mg, calling anesthesia to place epidural.
[2018-03-19] MEDS ORDERED: ONDANSETRON 4 MG (ODT) TAB PO PRN (17:24)
[2018-03-19] MEDS ORDERED: IBUPROFEN 200 MG TAB PO PRN (17:24)
[2018-03-19] MEDS ORDERED: METHYLERGONOVINE 0.2 MG TAB PO PRN (17:24)
[2018-03-19] MEDS ORDERED: Oxycodone HCl/Acetaminophen 1 TAB TAB PO PRN (17:24)
--- NOTE | 2018-03-19 17:28 | P.BOP ---
Preoperative diagnosis: 39+ week Postoperative diagnosis: SCVD viable male infant Secondary procedure: repair of 2 degree midline laceration Estimated blood loss: Less than 300ml Anesthesia: epidural Complications: None Transferred to: Other (271) Condition: Good
[2018-03-19] MEDS ORDERED: MEASLES,MUMPS,RUBELLA VAC 0.5ML SQVAC ONE (18:00)
[2018-03-19 23:52] LABS: RPR (Rapid Plasma Reagin) NON-REACT (NON-REACT)
[2018-03-20 17:10] VITALS: BP 118/75; TEMP 98
--- NOTE | 2018-03-21 06:00 | DS ---
Date of Discharge: 03/20/2018 Final Hospital Discharge Diagnosis: 40+ week , iron deficiency anemia. Complications: None. Procedures: Artificial rupture of membranes, Pitocin induction of labor, spontaneous controlled vagi nal delivery of viable male , repair of second-degree laceration. Hospital Course: The patient is a 27-year-old female, 2, para 1-0-0-1, at 40+ week s gestation, admitted for induction of labor. She had an uneventful labor and delivery of a 7 pound 15 ounce male , 9 and 9 with epidural anesthesia. She was dismissed on her first postpar andria day, ambulatory, on a select diet, with routine post vaginal delivery activity restrictions, to leelee jenkins seen back at my office in 2 weeks and 6 weeks. She was to continue taking her iron and vi tamins and Prozac. Lab work included an admission hemoglobin and hematocrit of 11.9 and 34.4; dismis leslie 28.7. Because she was rubella nonimmune, she will be immunized prior to dismissal. She was dismi ssed with the usual post vaginal delivery activity restrictions. DACIA/MASHA Voice ID: [id number] Report ID: [id number]
--- NOTE | 2018-03-21 09:18 | OP ---
Surgeon: Galileo Greer MD Ms. Cote is a 27-year-old, , female, 2, para 1-0-0-1 at 40+ weeks gestation . She is admitted for elective induction of labor secondary to term with favorable cervix. After the Pitocin induction of labor was begun, artificial rupture of membranes performed. She had a first stage of labor of 6 hours and 45 minutes, second stage of labor of 16 minutes. She delivere d by spontaneous controlled vaginal delivery a 7 pound 15 ounce male . After delayed cord clam ping, it was clamped, cut, and the placed on mother's upper abdomen. Cord blood was obtained. The placenta was spontaneously expelled and appeared to be intact. She suffered a second-degree mi dline perineal laceration at time of delivery. This was repaired in usual fashion with 3-0 Vicryl medina ture. She received 1 mg of Stadol for analgesia prior to placement of epidural catheter early in her course of labor and received excellent benefit from this. Estimated total blood loss was less than 400 cc. DACIA/MASHA Voice ID: [id number] Report ID: [id number]
[2018-03-22 04:04] LABS: HBsAG Nonreactive (Nonreactive)
== END 2018-03-20 19:30 | disposition home or self-care (01) | DRG 775 ==
LOC: 2ND-WC 03-19 06:37
PROVIDERS: ADMIT Specialist; ATTEND Specialist
PROC: 10E0XZZ Delivery of Products of Conception, External Approach (ICD-10-PCS; principal; 2018-03-19)
PROC: 0KQM0ZZ Repair Perineum Muscle, Open Approach (ICD-10-PCS; 2018-03-19)
PROC: 10907ZC Drainage of Amniotic Fluid, Therapeutic from Products of Conception, Via Natural or Artificial Opening (ICD-10-PCS; 2018-03-19)
PROC: 3E033VJ Introduction of Other Hormone into Peripheral Vein, Percutaneous Approach (ICD-10-PCS; 2018-03-19)
DX: O70.1 Second degree perineal laceration during delivery (principal); Z37.0 Single live birth; O99.02 Anemia complicating childbirth; D50.9 Iron deficiency anemia, unspecified; O99.214 Obesity complicating childbirth; Z3A.39 39 weeks gestation of pregnancy
CPT/HCPCS: 36415; 81003; 81015; 85014; 85025; 86592; 86901; 87086; 87088; 87340; J0595; J2210; J2590; J2795; J3010

== ENCOUNTER 2019-05-22 00:45 | Emergency (ER) | payer OTHER, SELFPAY ==
--- NOTE | 2019-05-22 01:56 | ER ---
Nurse's Notes [facility] Name: Rosy Cote Age: 28 yrs Sex: Female : 1990 Arrival Date: 05/22/2019 Time: 00:49 Bed 15 Private MD: Diagnosis: Fracture of posterior process of talus Presentation: 05/22 00:55 Presenting complaint: Patient states: while I am walking yesterday around 5AM going to 5 work my left ankle gave out. it started to hurt and became swollen. I put ice compress,took ibuprofen and Tylenol but it did not help for the pain. Transition of care: patient was not received from another setting of care. Onset of symptoms was May 21, 2019 at 05:00. Risk Assessment: Do you want to hurt yourself or someone else? Patient reports no desire to harm self or others. Initial Sepsis Screen: Does the patient meet any 2 criteria? No. Patient's initial sepsis screen is negative. Does the patient have a suspected source of infection? No. Patient's initial sepsis screen is negative. Care prior to arrival: Ice compress Medication(s) given: Motrin, Tylenol. 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 - Social history:: Smoking status: Patient/guardian denies using tobacco, Patient/guardian denies using alcohol, street drugs. - Ebola Screening: : Patient negative for fever greater than or equal to 101.5 degrees Fahrenheit, and additional compatible Ebola Virus Disease symptoms Patient denies exposure to infectious person Patient denies travel to an Ebola-affected area in the 21 days before illness onset. Screenin:02 Abuse screen: Denies threats or abuse. Denies injuries from another. Nutritional rr5 screening: No deficits noted. Tuberculosis screening: No symptoms or risk factors identified. Fall Risk Gait- Impaired (20 pts.). Total Man Fall Scale indicates No Risk (0-24 pts). Assessment: 01:00 General: Appears in no apparent distress. uncomfortable, Behavior is calm, cooperative, rr5 appropriate for age. 01:00 Pain: Complains of pain in left ankle Pain radiates to heel of left foot Pain currently rr5 is 9 out of 10 on a pain scale. Quality of pain is described as aching, Pain began suddenly, Is intermittent. Neuro: Level of Consciousness is awake, alert, obeys commands, Oriented to person, place, time, situation. Cardiovascular: Capillary refill < 3 seconds Patient's skin is warm and dry. Respiratory: Airway is patent Respiratory effort is even, unlabored, Respiratory pattern is regular, symmetrical. GI: No signs and/or symptoms were reported involving the gastrointestinal system. : No signs and/or symptoms were reported regarding the genitourinary system. EENT: No signs and/or symptoms were reported regarding the EENT system. Derm: Skin is intact, Skin temperature is warm. Musculoskeletal: Capillary refill < 3 seconds, Swelling present in left ankle swelling left ankle Reports pain in left ankle Pain is 9 out of 10 on a pain scale. 02:00 Reassessment: Patient appears in no apparent distress at this time. Patient is alert, rr5 oriented x 3, equal unlabored respirations, skin warm/dry/pink. discharge instruction given and explained without complaints made. Vital Signs: 01:00 BP 130 / 80; Pulse 104; Resp 19; Temp 97.9; Pulse Ox 99% ; Weight 122.47 kg; Height 5 rr5 ft. 10 in. (177.80 cm); Pain 9/10; 01:48 BP 127 / 67; Pulse 95; Resp 17; Pulse Ox 98% on R/A; rr5 01:00 Body Mass Index 38.74 (122.47 kg, 177.80 cm) rr5 ED Course: 00:49 Patient arrived in ED. cf2 00:49 Tha Childress, MOJGAN is Primary Nurse. rr5 00:54 Berny Rosenbaum PA is PHCP. jmm 00:54 Salvador Santos MD is Attending Physician. jmm 01:00 Triage completed. rr5 01:00 Arm band placed on. rr5 01:06 Patient has correct armband on for positive identification. Bed in low position. Call rr5 light in reach. 01:30 Ankle Left 3 View XRAY In Process Unspecified. EDMS 01:48 No provider procedures requiring assistance completed. Patient did not have IV access rr5 during this emergency room visit. 01:48 Crutch training done. walker air low applied and crutches given. rr5 01:55 Sampson Dao MD is Referral Physician. linda Administered Medications: No medications were administered Outcome: 01:55 Discharge ordered by . linda 02:05 Discharged to home via wheelchair. rr5 02:05 Condition: stable 02:05 Discharge instructions given to patient, Instructed on discharge instructions, follow up and referral plans. medication usage, crutch walking, Demonstrated understanding of instructions, follow-up care, medications, crutch walking, Prescriptions given X 1. 02:06 Patient left the ED. rr5 Signatures: Dispatcher [employer] EDMS Berny Rosenbaum PA PA jmm Roque, Raymond, RN RN rr5 [place] cf2
--- NOTE | 2019-05-22 01:56 | EDPHYS ---
Physician Documentation [facility] Name: Rosy Cote Age: 28 yrs Sex: Female : 1990 Arrival Date: 05/22/2019 Time: 00:49 Bed 15 Private MD: ED Physician Salvador Santos HPI: 05/22 01:01 This 28 yrs old Female presents to ER via Wheelchair with complaints of Ankle jmm Injury. 01:01 The patient presents with an injury. Onset: The symptoms/episode began/occurred jmm acutely, 1 day(s) ago. Context:. Associated signs and symptoms: Pertinent positives: swelling. Modifying factors: The symptoms are alleviated by nothing, the symptoms are aggravated by movement. This is a 28 year old female with a history of anemia that presents to the ED with complaints of pain to her left ankle after rolling it while stepping down a step. Patient denies other injury. . 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 - Social history:: Smoking status: Patient/guardian denies using tobacco, Patient/guardian denies using alcohol, street drugs. - Ebola Screening: : Patient negative for fever greater than or equal to 101.5 degrees Fahrenheit, and additional compatible Ebola Virus Disease symptoms Patient denies exposure to infectious person Patient denies travel to an Ebola-affected area in the 21 days before illness onset. ROS: 01:01 Constitutional: Negative for fever, chills, and weight loss, Cardiovascular: Negative jmm for chest pain, palpitations, and edema, Respiratory: Negative for shortness of breath, cough, wheezing, and pleuritic chest pain. 01:01 MS/extremity: Positive for injury or acute deformity. 01:01 All other systems are negative. Exam: 01:01 Constitutional: This is a well developed, well nourished patient who is awake, alert, jmm and in no acute distress. Head/Face: atraumatic. Eyes: EOMI, no conjunctival erythema appreciated ENT: Moist Mucus Membranes Neck: Trachea midline, Supple Chest/axilla: Normal chest wall appearance and motion. Cardiovascular: Regular rate and rhythm. No edema appreciated Respiratory: Normal respirations, no respiratory distress appreciated Abdomen/GI: Non distended, soft Back: Normal ROM Skin: General appearance color normal 01:01 Musculoskeletal/extremity: from appreciated, no bony tenderness appreciated, full dorsalis pulse, compartments are soft, NVI. 01:01 Skin: Appearance: Color: normal in color. 01:01 Neuro: Orientation: is normal, Mentation: is normal, Memory: is normal. 01:01 Psych: Behavior/mood is pleasant, cooperative. Vital Signs: 01:00 BP 130 / 80; Pulse 104; Resp 19; Temp 97.9; Pulse Ox 99% ; Weight 122.47 kg; Height 5 rr5 ft. 10 in. (177.80 cm); Pain 9/10; 01:48 BP 127 / 67; Pulse 95; Resp 17; Pulse Ox 98% on R/A; rr5 01:00 Body Mass Index 38.74 (122.47 kg, 177.80 cm) rr5 Procedures: 01:53 Splinting: Splint applied to left foot using Ortho 3D boot, applied by nurse. Examined jm by me, post splint application: neurovascular intact, 2+ distal pulses palpable, brisk capillary refill noted, Patient tolerated well. MDM: 01:01 Patient medically screened. [facility] 01:54 Data reviewed: vital signs, nurses notes. Counseling: I had a detailed discussion with linda the patient and/or guardian regarding: the historical points, exam findings, and any diagnostic results supporting the discharge/admit diagnosis, radiology results, the need for outpatient follow up, to return to the emergency department if symptoms worsen or persist or if there are any questions or concerns that arise at home. ED course: Patient advised to not bear weight until cleared by ortho. patient understood and agrees with the plan of care. . 05/22 01:02 Order name: Ankle Left 3 View XRAY [facility] 05/22 01:37 Order name: Splint; Complete Time: 01:50 [facility] 05/22 01:39 Order name: Crutches; Complete Time: 01:50 [facility] Administered Medications: No medications were administered Disposition: 06:56 Co-signature as Attending Physician, Salvador Santos MD I agree with the assessment and tw4 plan of care. Disposition: 05/22/19 01:55 Discharged to Home. Impression: Fracture of posterior process of talus. - Condition is Stable. - Discharge Instructions: Ankle Fracture. - Prescriptions for Ultracet 37.5- 325 mg Oral Tablet - take 1 tablet by ORAL route every 6 hours - for up to 5 days; do not exceed 8 tablets per day.; 12 tablet. - Medication Reconciliation Form, Thank You Letter, Antibiotic Education, Prescription Opioid Use form. - Follow up: Sampson Dao MD; When: 2 - 3 days; Reason: Recheck today's complaints, Continuance of care, Re-evaluation by your physician. Signatures: Dispatcher [employer] EDMS Berny Rosenbaum PA PA jmm Wadley, Terrence, MD MD tw4 Tha Childress RN RN rr5 Corrections: (The following items were deleted from the chart) 02:06 01:55 05/22/2019 01:55 Discharged to Home. Impression: Fracture of posterior process of rr5 talus. Condition is Stable. Forms are Medication Reconciliation Form, Thank You Letter, Antibiotic Education, Prescription Opioid Use. Follow up: Sampson Dao; When: 2 - 3 days; Reason: Recheck today's complaints, Continuance of care, Re-evaluation by your physician. linda
[2019-05-22 04:18] VITALS: TEMP 97.9
[2019-05-22 04:20] VITALS: BP 127/67; O2SAT 98
--- NOTE | 2019-05-22 07:43 | RAD REPORT ---
EXAM DESCRIPTION: RAD - Ankle Left 3 View -05/22/2019 1:30 am CLINICAL HISTORY: Left ankle pain status post injury FINDINGS: No fracture or dislocation is seen. Large calcaneal spur
== END 2019-05-22 02:06 | disposition home or self-care (01) ==
LOC: ER 00:45
PROC: 2W3RX1Z Immobilization of Left Lower Leg using Splint (ICD-10-PCS; principal; 2019-05-22)
DX: S92.132A Displaced fracture of posterior process of left talus, initial encounter for closed fracture (principal); X58.XXXA Exposure to other specified factors, initial encounter; Y93.89 Activity, other specified; Y92.9 Unspecified place or not applicable; Z88.7 Allergy status to serum and vaccine
CPT/HCPCS: 99283

== ENCOUNTER 2021-02-15 14:13 | Emergency (ER) | payer BC, SELFPAY ==
--- OUTSIDE RECORDS SUMMARY | 2021-02-15 14:15 | XMS REPORT | Continuity of Care Document ---
:1990 Author Organization [facility] t Address [address] [place] [address] Care Team Providers Name Role Phone [place] MACEDO, Joseph Attending Clinician Problems This patient has no known problems. Allergies, Adverse Reactions, Alerts This patient has no known allergies or adverse reactions. Medications This patient has no known medications. Procedures This patient has no known procedures. Encounters Start End Encounter Admission Attending Care Care Encounter Source Date/Time Date/Time Type Type Clinicians Facility Department ID 2021-01-28 2021-01-28 Office Camille Dealrosa [id number] 13:58:07 14:38:33 Visit Joseph Zamudio [id number] [facility] [id number] [place] [phone] Clinic 134 Results This patient has no known results.
--- NOTE | 2021-02-15 15:14 | RAD REPORT ---
EXAM DESCRIPTION: RAD - Chest Single View - 02/15/2021 3:08 pm CLINICAL HISTORY: PALPITATIONS COMPARISON: No comparisons FINDINGS: No evidence of edema or pneumonia. The heart size is within normal limits.No acute osseous abnormality. No significant pleural effusions or pneumothorax. IMPRESSION: No acute cardiopulmonary disease.
[2021-02-15 15:22] LABS: Absolute Lymphocytes (CBC) 2.4 K/uL (0.7-4.9); Basophils % 0.3 % (0-1.3); Hematocrit 39.6 % (36.0-45.0); Lymphocytes % 26.5 % (15.3-44.8); RBC Red Blood Cell Count 4.67 M/uL (3.86-4.86)
[2021-02-15 15:30] LABS: BUN Blood Urea Nitrogen 11 mg/dL (7-18); Bicarbonate 30 mmol/L (21-32); Glucose Level 96 mg/dL (74-106); Potassium 3.7 mmol/L (3.5-5.1); Sodium Level 140 mmol/L (136-145); Troponin (Emerg Dept Use Only) < 0.02 ng/mL (0.0-0.045)
--- NOTE | 2021-02-15 16:13 | EDPHYS ---
Physician Documentation [facility] Name: Rosy Cote Age: 30 yrs Sex: Female : 1990 Arrival Date: 02/15/2021 Time: 14:13 Bed 11 Private MD: ED Physician Elbert Zheng HPI: 02/15 16:06 This 30 yrs old Female presents to ER via Ambulatory with complaints of rn Palpitations. 16:06 The patient presents with a history of heart racing. Context: The symptoms occur at rn rest. Onset: The symptoms/episode began/occurred 3 day(s) ago. Duration: The patient or guardian reports multiple episodes, that are intermittent. Modifying factors: The symptoms are aggravated by nothing. The symptoms are alleviated by nothing. Associated signs and symptoms: Pertinent negatives: anxiety, chest pain, cough, fever, lightheadedness, SOB, syncope. Severity of symptoms: At their worst the symptoms were mild in the emergency department the symptoms have improved. The patient has not experienced similar symptoms in the past. The patient has not recently seen a physician. Patient reports 2 or 3 days of intermittent palpitations, heart racing to 110s, no fever, no chest pain, no syncope, no shortness of breath, no abdominal pain, no vomiting or diarrhea. No family history of early cardiac disease. No changes in diet. No drug use. No changes in medication. Has follow-up with cardiology next month, appointment already set.. 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 - Social history:: Smoking status: Patient denies any tobacco usage or history of. - Family history:: not pertinent. - Hospitalizations: : No recent hospitalization is reported. ROS: 16:06 Constitutional: Negative for fever, chills, and weight loss, Eyes: Negative for injury, rn pain, redness, and discharge, ENT: Negative for injury, pain, and discharge, Neck: Negative for injury, pain, and swelling, Cardiovascular: Negative for chest pain, and edema, Respiratory: Negative for shortness of breath, cough, wheezing, and pleuritic chest pain, Abdomen/GI: Negative for abdominal pain, nausea, vomiting, diarrhea, and constipation, Back: Negative for injury and pain, : Negative for injury, bleeding, discharge, and swelling, MS/Extremity: Negative for injury and deformity, Skin: Negative for injury, rash, and discoloration, Neuro: Negative for headache, weakness, numbness, tingling, and seizure. 16:06 All other systems are negative. Exam: 15:48 ECG was reviewed by the Attending Physician. rn 16:06 Constitutional: This is a well developed, well nourished patient who is awake, alert, rn and in no acute distress. Head/Face: Normocephalic, atraumatic. Eyes: Periorbital areas with no swelling, redness, or edema. Cardiovascular: Regular rate and rhythm. No pulse deficits. Respiratory: No increased work of breathing, no retractions or nasal flaring. Abdomen/GI: Soft, non-tender Skin: Warm, dry MS/ Extremity: Pulses equal, no cyanosis. Neuro: Awake and alert, GCS 15 Vital Signs: 14:45 BP 122 / 74 RA Sitting (auto/); Pulse 87; Resp 20; Temp 98.1(TE); Pulse Ox 97% on R/A; kg Weight 129.27 kg (R); Height 5 ft. 10 in. (177.80 cm); Pain 3/10; 16:30 BP 98 / 62; Pulse 78; Resp 16; Pulse Ox 99% ; vg1 14:45 Body Mass Index 40.89 (129.27 kg, 177.80 cm) kg MDM: 15:24 Patient medically screened. rn 16:11 Differential diagnosis: arrythmia, dehydration, stress disorder. Data reviewed: vital rn signs, nurses notes, lab test result(s), EKG, radiologic studies, plain films, and as a result, I will discharge patient. Data interpreted: satellite project site monitor: rate is 87 beats/min, rhythm is normal sinus rhythm, regular, with no ectopy, Interpretation: normal rate, normal rhythm, Pulse oximetry: on room air is 97 %. Interpretation: normal. Test interpretation: by ED physician or midlevel provider: ECG, plain radiologic studies, Chest x-ray negative for acute infiltrate. Counseling: I had a detailed discussion with the patient and/or guardian regarding: the historical points, exam findings, and any diagnostic results supporting the discharge/admit diagnosis, lab results, radiology results, the need for outpatient follow up, to return to the emergency department if symptoms worsen or persist or if there are any questions or concerns that arise at home. Response to treatment: the patient's symptoms have markedly improved after treatment, and as a result, I will discharge patient. Special discussion: I discussed with the patient/guardian in detail that at this point there is no indication for admission to the hospital. It is understood, however, that if the symptoms persist or worsen the patient needs to return immediately for re-evaluation. Based on the history and exam findings, there is no indication for further emergent testing or inpatient evaluation. I discussed with the patient/guardian the need to see the hood maker for further evaluation of the symptoms. 02/15 14:51 Order name: CBC with Diff 02/15 14:51 Order name: Basic Metabolic Panel 02/15 14:51 Order name: Troponin (emerg Dept Use Only); Complete Time: 15:48 rn 02/15 14:51 Order name: D-Dimer; Complete Time: 15:27 02/15 14:51 Order name: CBC with Automated Diff; Complete Time: 15:27 EDOK 02/15 14:51 Order name: Basic Metabolic Panel; Complete Time: 15:48 EDOK 02/15 14:51 Order name: IV Start; Complete Time: 14:59 rn 02/15 14:51 Order name: EKG; Complete Time: 14:51 02/15 14:51 Order name: EKG - Nurse/Tech; Complete Time: 14:51 rn 02/15 14:51 Order name: XRAY Chest (1 view); Complete Time: 15:27 rn EC:48 Rate is 89 beats/min. Rhythm is regular. QRS Wells is Normal. SD interval is normal. QRS rn interval is normal. QT interval is normal. No Q waves. T waves are Normal. No ST changes noted. Clinical impression: Normal ECG. Interpreted by me. Reviewed by me. Administered Medications: No medications were administered Disposition Summary: 02/15/21 16:13 Discharge Ordered Location: Home rn Problem: new rn Symptoms: have improved rn Condition: Stable rn Diagnosis - Palpitations rn Followup: rn - With: Private Physician - When: As needed - Reason: Recheck today's complaints, Re-evaluation by your physician Discharge Instructions: - Discharge Summary Sheet rn - Palpitations rn Forms: - Medication Reconciliation Form rn - Thank You Letter rn - Antibiotic consultants intern - Prescription Opioid Use rn Signatures: Dispatcher [employer] EDElbert Montelongo MD MD rn Graham, Kristen, RN RN kg
--- NOTE | 2021-02-15 16:13 | ER ---
Nurse's Notes [facility] Name: Rosy Cote Age: 30 yrs Sex: Female : 1990 Arrival Date: 02/15/2021 Time: 14:13 Bed 11 Private MD: Diagnosis: Palpitations Presentation: 02/15 14:45 Chief complaint: Patient states: Palpitations x 3 days. Pt stated she has had them kg before with anxiety but they normally go away. Coronavirus screen: Client denies travel out of the [place] in the last 14 days. At this time, unable to obtain information related to travel outside the [place] At this time, the client does not indicate any symptoms associated with coronavirus-19. Ebola Screen: Patient negative for fever greater than or equal to 101.5 degrees Fahrenheit, and additional compatible Ebola Virus Disease symptoms Patient denies exposure to infectious person. Patient denies travel to an Ebola-affected area in the 21 days before illness onset. No symptoms or risks identified at this time. Initial Sepsis Screen: Does the patient meet any 2 criteria? No. Patient's initial sepsis screen is negative. Does the patient have a suspected source of infection? No. Patient's initial sepsis screen is negative. Risk Assessment: Do you want to hurt yourself or someone else? Patient reports no desire to harm self or others. Onset of symptoms was February 12, 2021. 14:45 Method Of Arrival: Ambulatory kg 14:45 Acuity: VITA 3 kg Triage Assessment: 14:46 General: Appears in no apparent distress. Behavior is calm, cooperative, appropriate kg for age, quiet. Pain: Complains of pain in xiphoid area and mid-sternal area Pain currently is 3 out of 10 on a pain scale. at worst was 3 out of 10 on a pain scale. level that patient reports is acceptable is 3 out of 10 on a pain scale. Quality of pain is described as sharp. Cardiovascular: Reports chest pain, palpitations. 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 - Social history:: Smoking status: Patient denies any tobacco usage or history of. - Family history:: not pertinent. - Hospitalizations: : No recent hospitalization is reported. Screenin:49 Abuse screen: Denies threats or abuse. Denies injuries from another. Nutritional kg screening: No deficits noted. Tuberculosis screening: No symptoms or risk factors identified. Fall Risk None identified. Assessment: 16:30 General: Appears in no apparent distress. comfortable. Pain: Denies pain. Neuro: Level vg1 of Consciousness is awake, alert, obeys commands, Oriented to person, place, time, situation. Cardiovascular: Patient's skin is warm and dry. Respiratory: Airway is patent Respiratory effort is even, unlabored. GI: Patient currently denies diarrhea, nausea, vomiting. : No signs and/or symptoms were reported regarding the genitourinary system. EENT: No signs and/or symptoms were reported regarding the EENT system. Derm: Skin is intact, is healthy with good turgor. Musculoskeletal: Circulation, motion, and sensation intact. Vital Signs: 14:45 BP 122 / 74 RA Sitting (auto/); Pulse 87; Resp 20; Temp 98.1(TE); Pulse Ox 97% on R/A; kg Weight 129.27 kg (R); Height 5 ft. 10 in. (177.80 cm); Pain 3/10; 16:30 BP 98 / 62; Pulse 78; Resp 16; Pulse Ox 99% ; vg1 14:45 Body Mass Index 40.89 (129.27 kg, 177.80 cm) kg ED Course: 14:13 Patient arrived in ED. as 14:46 Triage completed. kg 14:46 Arm band placed on right wrist. kg 14:49 Patient has correct armband on for positive identification. kg 14:58 Inserted saline lock: 20 gauge in right antecubital area, using aseptic technique. mt Blood collected. 15:07 XRAY Chest (1 view) In Process Unspecified. EDMS 15:24 Elbert Zheng MD is Attending Physician. rn 16:38 Taya Guerin RN is Primary Nurse. vg1 16:39 No provider procedures requiring assistance completed. IV discontinued, intact, vg1 bleeding controlled, No redness/swelling at site. Pressure dressing applied. Administered Medications: No medications were administered Outcome: 16:13 Discharge ordered by . rn 16:39 Discharged to home ambulatory. vg1 16:39 Condition: stable 16:39 Discharge instructions given to patient, Instructed on discharge instructions, follow up and referral plans. Demonstrated understanding of instructions, follow-up care. 16:40 Patient left the ED. vg1 Signatures: Dispatcher [employer] Mary Colvin Roman, MD MD rn Thompson, Moriah mt Garcia, Victoria RN RN vg1 Betsy Loving RN RN kg
[2021-02-15 16:55] VITALS: TEMP 98.1
[2021-02-15 17:03] VITALS: BP 98/62; O2SAT 99
--- NOTE | 2021-02-16 15:39 | EKG ---
Test Date: 2021-02-15 Test Time: 14:49:12 Line Mover: FLAKO MEASUREMENT RESULTS: Intervals: Rate: 89 WV: 156 QRSD: 82 QT: 350 QTc: 425 Evant: P: 59 WV: 156 QRS: 39 T: 24 INTERPRETIVE STATEMENTS: Normal sinus rhythm Normal ECG Compared to ECG 01/12/2018 01:48:22 No significant changes Electronically Signed On 02-16-21 15:37:04 CDT by Preet Manrique
== END 2021-02-15 16:40 | disposition home or self-care (01) ==
LOC: ER 14:13
DX: R00.2 Palpitations (principal); Z88.7 Allergy status to serum and vaccine
CPT/HCPCS: 36415; 71045; 80048; 84484; 85025; 85379; 93005; 99283

== ENCOUNTER 2021-07-23 20:04 | Emergency (ER) | payer BC ==
--- OUTSIDE RECORDS SUMMARY | 2021-07-23 20:06 | XMS REPORT | Continuity of Care Document ---
:1990 Author Organization [facility] t Address [address] [place] [address] Care Team Providers Name Role Phone Pcp, Does Not Have A Primary Care Physician ЕКАТЕРИНА WILKS Attending Clinician Unavailable Sulema NUR Attending Clinician Unavailable Liudmila MACEDO, K.HChristine Attending Clinician Екатерина Wilks MD Attending Clinician Payers Payer Name Policy Type Policy Number Effective Date Expiration Date S ourmy [facility] [id number] 2020 00:00:00 Problems Condition Condition Condition Status Onset Resolution Last Treating Co mments Source Name Details Category Date Date Treatment Clinician Date Well woman Well woman Disease Active U nivers exam with exam with 8-06 ity of routine routine 00:00: [place] gynecologi gynecologi 00 Me dical luis exam luis exam Branch Presence Presence Disease Active Unive rs of 52 mg of 52 mg 8-06 ity of [place] trel-rele[place] trel-relea 00 Me dical sing sing Branch intrauteri intrauteri ne device ne device (IUD) (IUD) Obesity, Obesity, Disease Active Unive rs morbid, morbid, 8-06 ity of BMI BMI 00:00: [place] 40.0-49.9 40.0-49.9 00 Medi luis Branch Allergies, Adverse Reactions, Alerts Allergy Allergy Status Severity Reaction(s) Onset Inactive Treating Comm ents Source Name Type Date Date Clinician Measles, Propensi Active Unknown - Uni vers Mumps, ty to See comments 02-24 ity of And adverse 00:00: [place] Rubella reaction 00 Medical Vaccine s Branch Live MEASLES, DRUG Active Unknown-Cmnt Un александр MUMPS, INGREDI 02-24 ity of AND 00:00: [place] RUBELLA 00 Medical VACCINE Branch LIVE RED DYE DRUG Active Rash Univers INGREDI 07-26 ity of 00:00: [place] 00 Medical Branch Social History Social Habit Start Date Stop Date Quantity Comments Source Exposure to Not sure [facility] SARS-CoV-2 [facility] [place] [facility] (event) [place] Tobacco use and 2021-01-28 2021-01-28 Never used Universit y of exposure 00:00:00 00:00:00 [facility] Alcohol intake 2021-01-28 2021-01-28 Current drinker Unive rsity of 00:00:00 00:00:00 of alcohol [facility] [place] [facility] (finding) [place] Sex Ass[birth year] Universit y of 00:00:00 00:00:00 [facility] Smoking Status Start Date Stop Date Source Never smoker [facility] Medications Ordered Filled Start Stop Current Ordering Indication Dosage Frequency Signature Comments Components Source Medication Medication Date Date Medication? Clinician (SIG) Name Name No known No Univers medications 02-24 ity of 13:48: [address] No known No Univers medications 02-24 ity of 13:48: [address] Procedures Procedure Date / Time Performed Performing Clinician [facility] e HB ECG ROUTINE & 2021-02-24 18:56:05 Oscar Nur Univers [facility]y of [place] RHYTHM STRIP [facility] Encounters Start End Encounter Admission Attending Care Care Encounter Source Date/Time Date/Time Type Type Clinicians Facility Department ID 2022-02-03 2022-02-03 Outpatient R CARLITOS WILKS [facility] [id number] Univers 14:00:00 14:00:00 [id number] ity [facility] 2021-03-24 2021-03-24 Outpatient R LIUDMILA [facility] [id number] Univers 16:00:00 16:00:00 OSCAR [id number] ity [facility] 2021-03-242021-03-24 Outpatient R LIUDMILA [facility] [id number] Univers 16:00:00 [facility]00:[facility] 2021[facility]03[facility]15 [facility] [id number] Univers 13:00:00 13:00:00 SENDIL [id number] [facility] 2021-02-24 2021-02-24 Office Liudmila [facility] [id number] Univers 13:42:03 14:19:03 Visit Sendjacy Randall [id number] [facility] [id number] Tuyet banda [facility] [phone] Il dical [address] 2021-02-24 2021-02-24 Outpatient R LIUDMILA [facility] [id number] Univers 14:00:00 14:00:00 SENDIL [id number] [facility] 2021-02-24 2021-02-24 Outpatient Areli NUR [facility] [id number] Univers 14:00:00 14:00:00 SENDIL [facility] 2021-01-28 2021-01-28 Office Carlitos Wilks [facility] [id number] 13:58:07 14:38:33 Visit Екатерина Zamudio [id number] [facility] [id number] [facility] [id number] Clinic 134 2021-01-28 2021-01-28 Outpatient CARLITOS PACHECO [facility] [id number] Univers 14:00:00 [facility] Results This patient has no known results.
--- NOTE | 2021-07-23 21:45 | RAD REPORT ---
EXAM DESCRIPTION: USExtremity Venous Uni Ltd07/23/2021 9:35 pm CLINICAL HISTORY: Right leg pain COMPARISON: None. FINDINGS: Right common femoral, superficial femoral, popliteal and right posterior tibial veins are compressible and demonstrate augmentation. Doppler demonstrates good flow. Grayscale, color and spectral analysis performed on all vessels IMPRESSION: No evidence of deep venous thrombosis involving the right lower extremity.
--- NOTE | 2021-07-23 22:19 | ER ---
Nurse's Notes [facility] Name: Rosy Cote Age: 30 yrs Sex: Female : 1990 Arrival Date: 07/23/2021 Time: 20:05 Bed Treatment Private MD: Diagnosis: Right Knee Pain (Popliteal) Presentation: 07/23 20:23 Chief complaint: Patient states: Woke up this morning with pain behind right knee, bb denies injury; Reports some concern for blood clot, COVID positive on 06/21/21; Denies chest pain, shortness of breath, redness/swelling to site. Coronavirus screen: At this time, the client does not indicate any symptoms associated with coronavirus-19. Ebola Screen: No symptoms or risks identified at this time. Risk Assessment: Do you want to hurt yourself or someone else? Patient reports no desire to harm self or others. Onset of symptoms was July 23, 2021. 20:23 Method Of Arrival: Ambulatory bb 20:23 Acuity: VITA 4 bb 20:26 Initial Sepsis Screen: Does the patient meet any 2 criteria? No. Patient's initial bb sepsis screen is negative. Does the patient have a suspected source of infection? No. Patient's initial sepsis screen is negative. Triage Assessment: 22:39 General: Appears in no apparent distress. comfortable, Behavior is calm, cooperative. ll3 Pain: Complains of pain in posterior aspect of right knee. 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 - Social history:: Smoking status: Patient denies any tobacco usage or history of. Screenin:26 Abuse screen: Denies threats or abuse. Denies injuries from another. Nutritional bb screening: No deficits noted. Tuberculosis screening: No symptoms or risk factors identified. Fall Risk None identified. Assessment: 22:39 Reassessment: Patient appears in no apparent distress at this time. No changes from ll3 previously documented assessment. Patient and/or family updated on plan of care and expected duration. Pain level reassessed. Patient is alert, oriented x 3, equal unlabored respirations, skin warm/dry/pink. Vital Signs: 20:26 BP 129 / 89; Pulse 89; Resp 18; Temp 98(TE); Pulse Ox 100% on R/A; Weight 122.47 kg bb (R); Height 5 ft. 10 in. (177.80 cm); Pain 4/10; 22:39 BP 127 / 69; Pulse 77; Resp 17; Pulse Ox 100% on R/A; ll3 20:26 Body Mass Index 38.74 (122.47 kg, 177.80 cm) ED Course: 20:05 Patient arrived in ED. kc5 20:24 Triage completed. bb 20:24 Arm band placed on left wrist. bb 20:28 Patient has correct armband on for positive identification. bb 20:45 Berny Rosenbaum PA is PHCP. [facility] 20:45 Nader Retana MD is Attending Physician. [facility] 21:35 US Extremity Venous Unilateral Ltd In Process Unspecified. EDMS 22:40 No provider procedures requiring assistance completed. Patient did not have IV access ll3 during this emergency room visit. Administered Medications: No medications were administered Outcome: 22:19 Discharge ordered by . [facility] 22:40 Discharged to home ambulatory. ll3 22:40 Condition: stable 22:40 Discharge instructions given to patient, Instructed on discharge instructions, follow up and referral plans. medication usage, Demonstrated understanding of instructions, follow-up care, medications, Prescriptions given X 1. 22:40 Patient left the ED. ll3 Signatures: Dispatcher [employer] EDMS Berny Rosenbaum PA PA Sunni Echols RN RN Kelly Boykin RN RN 3 Tiffanie Mitchell [email or web address]
--- NOTE | 2021-07-23 22:19 | EDPHYS ---
Physician Documentation [facility] [place] Name: Rosy Cote Age: 30 yrs Sex: Female : 1990 Arrival Date: 07/23/2021 Time: 20:05 Bed Treatment Private MD: ED Physician Nader Retana HPI: 07/23 22:16 This 30 yrs old Female presents to ER via Ambulatory with complaints of Leg Pain. jmm 22:16 The complaints affect the posterior aspect of right knee. Onset: The symptoms/episode jmm began/occurred gradually, 4 day(s) ago. Modifying factors: The symptoms are alleviated by nothing. the symptoms are aggravated by nothing. Associated signs and symptoms: Pertinent negatives fever, numbness, swelling, tingling, vomiting, warmth, weakness. Patient recently had covid. Denies CP or SOB. 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 - Social history:: Smoking status: Patient denies any tobacco usage or history of. ROS: 22:16 Constitutional: Negative for fever, chills, and weight loss, Cardiovascular: Negative jmm for chest pain, palpitations, and edema, Respiratory: Negative for shortness of breath, cough, wheezing, and pleuritic chest pain, Abdomen/GI: Negative for abdominal pain, nausea, vomiting, diarrhea, and constipation. 22:16 MS/extremity: Positive for pain. 22:16 All other systems are negative. Exam: 22:16 Constitutional: This is a well developed, well nourished patient who is awake, alert, jmm and in no acute distress. Head/Face: atraumatic. Eyes: EOMI, no conjunctival erythema appreciated ENT: Moist Mucus Membranes Neck: Trachea midline, Supple Chest/axilla: Normal chest wall appearance and motion. Cardiovascular: Regular rate and rhythm. No edema appreciated Respiratory: Normal respirations, no respiratory distress appreciated Abdomen/GI: Non distended, soft Back: Normal ROM Skin: General appearance color normal 22:16 Musculoskeletal/extremity: Mild pain on palpation of the right popliteal region, no erythema or induration appreciated, full range of motion appreciated the knee, compartments are soft, full dorsalis pedis pulse, neurovascular intact. Vital Signs: 20:26 BP 129 / 89; Pulse 89; Resp 18; Temp 98(TE); Pulse Ox 100% on R/A; Weight 122.47 kg bb (R); Height 5 ft. 10 in. (177.80 cm); Pain 4/10; 22:39 BP 127 / 69; Pulse 77; Resp 17; Pulse Ox 100% on R/A; ll3 20:26 Body Mass Index 38.74 (122.47 kg, 177.80 cm) bb MDM: 22:15 Patient medically screened. [facility] 22:16 Data reviewed: vital signs, nurses notes. Counseling: I had a detailed discussion with linda the patient and/or guardian regarding: the historical points, exam findings, and any diagnostic results supporting the discharge/admit diagnosis, radiology results, the need for outpatient follow up, to return to the emergency department if symptoms worsen or persist or if there are any questions or concerns that arise at home. ED course: Patient is alert and non toxic in appearance in the ED. No signs of infection, NVI. Advised to follow up with ortho. US is negative. . 07/23 20:28 Order name: Extremity Venous Unilateral Ltd; Complete Time: 22:11 [facility] Administered Medications: No medications were administered Disposition: 07/24 03:40 Co-signature as Attending Physician, Nader Retana MD. [email or web address] Disposition Summary: 07/23/21 22:19 Discharge Ordered Location: Home [facility] Condition: Stable [facility] Diagnosis - Right Knee Pain (Popliteal) [facility] Followup: [facility] - With: Private Physician - When: 2 - 3 days - Reason: Recheck today's complaints, Continuance of care, Re-evaluation by your physician Discharge Instructions: - Discharge Summary Sheet [facility] - Acute Knee Pain, Adult [facility] Forms: - Medication Reconciliation Form [facility] - Thank You Letter [facility] - Antibiotic Education [facility] - Prescription Opioid Use [facility] Prescriptions: - Ibuprofen 800 mg Oral Tablet - take 1 tablet by ORAL route every 8 hours As needed take with food; 30 tablet; [facility] Refills: 0, Product Selection Permitted Signatures: Dispatcher [employer] Berny Kang PA PA jmm Ballard, Brenda, MOJGAN RN Nader Rader MD MD [email or web address]
[2021-07-23 23:26] VITALS: BP 127/69; TEMP 98; O2SAT 100
== END 2021-07-23 22:40 | disposition home or self-care (01) ==
LOC: ER 20:04
DX: M25.561 Pain in right knee (principal); Z88.7 Allergy status to serum and vaccine
CPT/HCPCS: 93971; 99283

== ENCOUNTER 2022-06-12 10:31 | Emergency (ER) | payer BC ==
--- OUTSIDE RECORDS SUMMARY | 2022-06-12 10:34 | XMS REPORT | Continuity of Care Document ---
:1990 Author Organization [facility] t Address [address] [place] [place] [address] Care Team Providers Name Role Phone PCP, PATIENT DOES NOT HAVE A Primary Care Physician UnavailCARLITOS Bucio Attending Clinician Unavailable Carlitos Wilks MD Attending Clinician Doctor Unassigned, [place] Attending Clinician Unavailable Renee Abel MA Attending Clinician Unavailable Liudmila MACEDO, Sendil K.H. Attending Clinician OSCAR NUR K.H. Attending Clinician Unavailable Payers Payer Name Policy Type Policy Number Effective Date Expiration Date S sandra [facility] [id number] 2020 00:00:00 Problems Condition Condition Condition Status Onset Resolution Last Treating Co mments Source Name Details Category Date Date Treatment Clinician Date Well woman Well woman Disease Active U nivers exam with exam with 8-06 ity of routine routine 00:00: [place] gynecologi gynecologi 00 Me dical luis exam luis exam Branch Presence Presence Disease Active Unive rs of 52 mg of 52 mg 8-06 ity of [place] trel-relea trel-relea 00 Me dical sing sing Branch intrauteri intrauteri ne device ne device (IUD) (IUD) Obesity, Obesity, Disease Active Unive rs morbid, morbid, 8-06 ity of BMI BMI 00:00: [place] 40.0-49.9 40.0-49.9 00 Medi luis Branch Allergies, Adverse Reactions, Alerts Allergy Allergy Status Severity Reaction(s) Onset Inactive Treating Comm ents Source Name Type Date Date Clinician MEASLES, DRUG Active Unknown-Cmnt Un александр MUMPS, INGREDI 02-24 ity of AND 00:00: [place] RUBELLA 00 Medical VACCINE Branch LIVE Measles, Propensi Active Unknown - Uni vers Mumps, ty to See comments 02-24 ity of And adverse 00:00: [place] Rubella reaction 00 Medical Vaccine s Branch Live Social History Social Habit Start Date Stop Date Quantity Comments Source Exposure to 2022-02-14 2022-02-24 Not sure [facility] SARS-CoV-2 00:00:00 13:13:00 [facility] (event) [place] Tobacco use and 2022-02-24 2022-02-24 Smokeless tobacco Un iversity of exposure 00:00:00 00:00:00 non-user [facility] Alcohol intake 2022-02-24 2022-02-24 Lifetime University of 00:00:00 00:00:00 non-drinker [facility] (finding) [place] Sex Assigned At [birth year] Universit y of 00:00:00 00:00:00 [facility] Smoking Status Start Date Stop Date Source Never smoked tobacco [facility] Medications Ordered Filled Start Stop Current Ordering Indication Dosage Frequency Signature Comments Components Source Medication Medication Date Date Medication? Clinician (SIG) Name Name nystatin Yes [id number] Apply to [facility] 100,000 02-24 area(s) 2 ity of unit/gram 00:00: (two) [place] powder 00 times Medical daily. Branch Immunizations Ordered Filled Immunization Date Status Comments Sour e Immunization Name Name SARS-COV-2 COVID-19 2020-07-23 Completed Unive rsity of MODERNA 12+ YRS 00:00:00 [facility] ical VACCINE Branch SARS-COV-2 COVID-19 2020-06-22 Completed Unive rsity of MODERNA 12+ YRS 00:00:00 [facility] ical VACCINE Branch Vital Signs Vital Name Observation Time Observation Value Comments Source Systolic blood 2022-02-24 18:38:00 115 mm[Hg] Univer sity of pressure [facility] Diastolic blood 2022-02-24 18:38:00 73 mm[Hg] Unive rsity of pressure [facility] Heart rate 2022-02-24 18:38:00 97 /min [facility] Body temperature 2022-02-24 18:38:00 36.72 [place] [facility] Respiratory rate 2022-02-24 18:38:00 18 /min [facility] Body height 2022-02-24 18:38:00 177.8 cm [facility] Body weight 2022-02-24 18:38:00 138.347 kg [facility] BMI 2022-02-24 18:38:00 43.76 kg/m2 [facility] Procedures This patient has no known procedures. Encounters Start End Encounter Admission Attending Care Care Encounter Source Date/Time Date/Time Type Type Clinicians Facility Department ID 2023-03-02 2023-03-02 Outpatient Areli WILKS [facility] [id number] Univers 13:30:00 13:30:00 ity of [facility] 2022-02-24 2022-02-24 Outpatient Areli WILKS [facility] [id number] Univers 13:30:00 13:55:21 ity of [facility] 2022-02-24 2022-02-24 Outpatient Areli WILKS [facility] [id number] Univers 13:30:00 13:55:21 ity [facility] 2022-02-24 2022-02-24 Office [facility] [id number] Univers 13:30:00 13:55:21 Visit Joseph ZAMUDIO [id number] it y of [id number] [facility] [id number] [facility] Branch 2022-02-24 2022-02-24 Orders Doctor MIA [id number] Univers 00:00:00 00:00:00 Only Unassigned, FABBY [id number] ity of [place] [facility] [id number] [place] as [phone] [facility] 009 Branch 2022-02-17 2022-02-17 Pre Visit HAYLEE Abel [id number] Univers 00:00:00 00:00:00 Outreach Renee QUIROZ [id number] i ty of [id number] [id number] [facility] 086 [place] 2022-02-03 2022-02-03 Outpatient R CARLITOS WILKS [facility] [id number] Univers 14:00:00 14:00:00 ity of [facility] 2021-08-05 2021-08-05 Orders Doctor MIA [id number] Univers 00:00:00 00:00:00 Only Unassigned, FABBY [id number] ity of [place] [facility] [id number] [place] [phone] [facility] 009 [place] 2021-03-24 2021-03-24 [facility] [id number] Univers 15:56:33 23:59:00 Encounter Oscar Randall [id number] [id number] [id number] Nd dical nal 843 [facility] 2021-03-24 2021-03-24 Outpatient R LIUDMILA [facility] [id number] Univers 16:00:00 16:00:00 SENDIL itdelroy [facility] 2021-02-24 2021-02-24 [facility] [id number] Univers 13:42:03 14:19:03 Visit Oscar Randall [id number] ity [facility] [id number] [phone] Nd dical nal 059 [facility] 2021-02-24 2021-02-24 Outpatient R LIUDMILA [facility] [id number] Univers 14:00:00 14:00:00 SENDIL ity [facility] 2021-01-28 2021-01-28 Office Carlitos Wilks [facility] [id number] 13:58:07 14:38:33 Visit Joseph Zamudio [id number] Women's [id number] [place] [address] [phone] Clinic 134 2021-01-28 2021-01-28 Outpatient CARLITOS PACHECO [facility] [id number] [facility] 14:00:00 14:00:00 [facility] Results This patient has no known results.
--- NOTE | 2022-06-12 11:38 | RAD REPORT ---
EXAM DESCRIPTION: US - Extremity Venous Uni Ltd - 06/12/2022 11:15 am CLINICAL HISTORY: PAIN COMPARISON: None. TECHNIQUE: Real-time sonographic evaluation of the right lower extremity deep venous systems was per formed. FINDINGS: Normal compressibility, flow augmentation, phasic flow and spontaneous flow are identified in the right lower extremity common femoral, superficial femoral, popliteal and posterior tibial vei ns. No intraluminal filling defects seen. IMPRESSION: No DVT in the right lower extremity.
--- NOTE | 2022-06-12 12:09 | ER ---
Nurse's Notes [facility] Name: Rosy Cote Age: 31 yrs Sex: Female : 1990 Arrival Date: 06/12/2022 Time: 10:33 Bed IW2 Private MD: Diagnosis: Pain in right knee Presentation: 06/12 10:39 Chief complaint: Patient states: right knee sharp pain x1 week but a lot worse jh5 yesterday. Coronavirus screen: Vaccine status: Patient reports receiving the 2nd dose of the covid vaccine. Client denies travel out of the [place] in the last 14 days. Ebola Screen: Patient negative for fever greater than or equal to 101.5 degrees Fahrenheit, and additional compatible Ebola Virus Disease symptoms Patient denies exposure to infectious person. Patient denies travel to an Ebola-affected area in the 21 days before illness onset. Initial Sepsis Screen: Does the patient meet any 2 criteria? No. Patient's initial sepsis screen is negative. Does the patient have a suspected source of infection? No. Patient's initial sepsis screen is negative. Risk Assessment: Do you want to hurt yourself or someone else? Patient reports no desire to harm self or others. Onset of symptoms was June 05, 2022. 10:39 Method Of Arrival: Ambulatory [facility] 10:39 Acuity: VITA 3 jh5 Triage Assessment: 10:41 General: Appears in no apparent distress. uncomfortable, Behavior is calm, cooperative, jh5 appropriate for age. Pain: Complains of pain in right foot and right leg. 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 - Social history:: Smoking status: Patient denies any tobacco usage or history of. Screenin:20 Abuse screen: Denies threats or abuse. Denies injuries from another. Nutritional 5 screening: No deficits noted. Tuberculosis screening: No symptoms or risk factors identified. Fall Risk Secondary diagnosis (15 points) impaired mobility. Vital Signs: 10:39 BP 119 / 82; Pulse 83; Resp 16; Temp 99.0; Pulse Ox 96% ; Weight 138.35 kg; Height 5 5 ft. 10 in. (177.80 cm); Pain 10/10; 10:39 Body Mass Index 43.76 (138.35 kg, 177.80 cm) 5 ED Course: 10:33 Patient arrived in ED. as 10:34 Evon Zamudio FNP-C [facility] kb 10:34 Torito Walters DO is Attending Physician. kb 10:41 Triage completed. jh5 10:41 Arm band placed on right wrist. jh5 11:16 US Extremity Venous Unilateral Ltd In Process Unspecified. EDMS 12:20 Patient has correct armband on for positive identification. jh5 12:20 No provider procedures requiring assistance completed. Patient did not have IV access jh5 during this emergency room visit. Administered Medications: No medications were administered Medication: 12:21 VIS not applicable for this client. 5 Outcome: 12:08 Discharge ordered by MD. kb 12:20 Discharged to home ambulatory. 5 12:21 Condition: good [facility] 12:21 Discharge instructions given to patient, Instructed on discharge instructions, follow up and referral plans. medication usage, safety practices, Demonstrated understanding of instructions, follow-up care, medications, Prescriptions given X 1. 12:21 Patient left the ED. [facility] Signatures: Dispatcher [employer] EDSC Evon Zamudio FNP-C FNP-Ckb Martinez, Amelia as Rees, Jessica, RN RN [facility]
--- NOTE | 2022-06-12 12:09 | EDPHYS ---
Physician Documentation [facility] Name: Rosy Cote Age: 31 yrs Sex: Female : 1990 Arrival Date: 06/12/2022 Time: 10:33 Bed IW2 Private MD: ED Physician Torito Walters HPI: 06/12 11:17 This 31 yrs old Female presents to ER via Ambulatory with complaints of Knee Pain. kb 11:17 The patient presents with pain. The complaints affect the posterior aspect of right kb knee. Context: The problem was sustained at home, resulted from an unknown cause, the patient can fully bear weight, the patient is able to ambulate. Onset: The symptoms/episode began/occurred 1 week(s) ago. Modifying factors: The symptoms are alleviated by nothing. the symptoms are aggravated by movement. Associated signs and symptoms: The patient has no apparent associated signs or symptoms. Treatment prior to arrival includes: no previous treatment. Severity of symptoms: At their worst the symptoms were moderate, in the emergency department the symptoms are unchanged. The patient has not experienced similar symptoms in the past. The patient has not recently seen a physician. Pt reports pain to posterior right knee for a week that got worse today. Denies injury or trauma. 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 - Social history:: Smoking status: Patient denies any tobacco usage or history of. ROS: 11:16 Constitutional: Negative for fever, chills, and weight loss. kb 11:16 MS/extremity: Positive for pain, of the posterior aspect of right knee. 11:16 All other systems are negative. Exam: 11:16 Constitutional: This is a well developed, well nourished patient who is awake, alert, kb and in no acute distress. Head/Face: Normocephalic, atraumatic. ENT: Moist Mucous membranes Cardiovascular: Regular rate and rhythm with a normal S1 and S2. No gallops, murmurs, or rubs. No pulse deficits. Respiratory: Respirations even and unlabored. No increased work of breathing. Talking in full sentences Abdomen/GI: Soft, non-tender. No distention Skin: Warm, dry with normal turgor. Normal color. Neuro: Awake and alert, GCS 15, oriented to person, place, time, and situation. Moves all extremities. Normal gait. Psych: Awake, alert, with orientation to person, place and time. Behavior, mood, and affect are within normal limits. 11:16 Musculoskeletal/extremity: Extremities: grossly normal except: noted in the posterior aspect of right knee: pain, tenderness, ROM: intact in all extremities, Circulation is intact in all extremities. Sensation intact. Weight bearing: able to fully bear weight. Vital Signs: 10:39 BP 119 / 82; Pulse 83; Resp 16; Temp 99.0; Pulse Ox 96% ; Weight 138.35 kg; Height 5 jh5 ft. 10 in. (177.80 cm); Pain 10/10; 10:39 Body Mass Index 43.76 (138.35 kg, 177.80 cm) jh5 MDM: 10:38 Patient medically screened. kb 11:16 Data reviewed: vital signs, nurses notes. Data interpreted: Pulse oximetry: on room air kb is 96 %. Interpretation: normal. 12:03 Counseling: I had a detailed discussion with the patient and/or guardian regarding: the kb historical points, exam findings, and any diagnostic results supporting the discharge/admit diagnosis, radiology results, the need for outpatient follow up, a orthopedic surgeon, to return to the emergency department if symptoms worsen or persist or if there are any questions or concerns that arise at home. 06/12 10:40 Order name: US Extremity Venous Unilateral Ltd; Complete Time: 11:42 kb 06/12 12:04 Order name: Mitul Wrap; Complete Time: 12:20 kb Administered Medications: No medications were administered Disposition: 13:43 Co-signature as Attending Physician, Torito Walters DO I was immediately available on-site ms3 in the Emergency Department for consultation in the care of the patient. Disposition Summary: 06/12/22 12:08 Discharge Ordered Location: Home kb Condition: Stable kb Diagnosis - Pain in right knee kb Followup: kb - With: Emergency Department - When: As needed - Reason: Worsening of condition Followup: kb - With: Private Physician - When: 2 - 3 days - Reason: Recheck today's complaints, Continuance of care, Re-evaluation by your physician Discharge Instructions: - Discharge Summary Sheet kb - Acute Knee Pain, Adult, [id number] kb Forms: - Medication Reconciliation Form kb - Thank You Letter kb - Antibiotic Education kb - Prescription Opioid Use kb Prescriptions: - Diclofenac Sodium 75 mg Oral tablet,delayed release (DR/EC) - take 1 tablet by ORAL route 2 times per day As needed; 30 tablet; Refills: 0, kb Product Selection Permitted Signatures: Dispatcher [employer] EDMS Evon Zamudio, ROBBIE-Rhiannon AVALOS-Torito Alarcon, DO ms3 Rosy Bingham RN RN jh5 Corrections: (The following items were deleted from the chart) 11:19 11:17 Pt reports pain to posterior right knee for a week that got worse today. kb kb
[2022-06-12 12:32] VITALS: BP 119/82; TEMP 99; O2SAT 96
== END 2022-06-12 12:21 | disposition home or self-care (01) ==
LOC: ER 10:31
DX: M25.561 Pain in right knee (principal)
CPT/HCPCS: 93971; 99283

== ENCOUNTER 2023-04-30 19:52 | Emergency (ER) | payer BC, OTHER ==
--- OUTSIDE RECORDS SUMMARY | 2023-04-30 19:56 | XMS REPORT | Continuity of Care Document ---
:1990 Author Organization [facility] t Address [address] [facility] [address] [place] [address] Care Team Providers Name Role Phone PCP, PATIENT DOES NOT HAVE A Primary Care Physician UnavailCARLITOS Bucio Attending Clinician Unavailable Carlitos Wilks MD Attending Clinician Doctor Unassigned, Arnold Line Attending Clinician Unavailable Renee Abel MA Attending Clinician Unavailable Liudmila MACEDO, Sendil K.H. Attending Clinician OSCAR NUR K.H. Attending Clinician Unavailable Payers Payer Name Policy Type Policy Number Effective Date Expiration Date Jess flores [facility] [id number] 2020 00:00:00 Problems Condition Condition Condition Status [...] morbid, 8-06 ity of BMI BMI 00:00: [place] 40.0-49.9 40.0-49.9 00 Medi luis Branch Allergies, [...] Source Exposure to 2022-02-14 2022-02-24 Not sure [facility] SARS-CoV-2 00:00:00 13:13:00 [facility] (event) [place] Tobacco use and 2022-02-24 2022-02-24 Smokeless tobacco Un iversity of exposure 00:00:00 00:00:00 non-user [facility] Alcohol intake 2022-02-24 2022-02-24 [employer] 00:00:00 00:00:00 non-drinker [facility] (finding) [place] Sex Ass[birth year] [facility] y of 00:00:00 00:00:00 [facility] Smoking Status Start Date Stop Date Source Never smoked tobacco [facility] Medications Ordered Filled Start Stop Current Ordering Indication Dosage Frequency Signature Comments Components Source Medication Medication Date Date Medication? Clinician (SIG) Name Name nystatin Yes [id number] Apply to [facility] 100,000 02-24 area(s) 2 ity of unit/gram 00:00: (two) [place] powder 00 times Medical daily. Branch Vital Signs Vital Name Observation Time Observation Value Comments Source Systolic blood 2022-02-24 18:38:00 115 mm[Hg] Univer sity of pressure [facility] Diastolic blood 2022-02-24 18:38:00 73 mm[Hg] Unive rsity of pressure [facility] Heart rate 2022-02-24 18:38:00 97 /min [facility] Body temperature 2022-02-24 18:38:00 36.72 [facility] Respiratory rate 2022-02-24 18:38:00 18 /min [facility] Body height 2022-02-24 18:38:00 177.8 cm [facility] Body weight 2022-02-24 18:38:00 138.347 kg [facility] BMI 2022-02-24 18:38:00 43.76 kg/m2 [facility] Procedures This patient has no known procedures. Encounters Start End Encounter Admission Attending Care Care Encounter Source Date/Time Date/Time Type Type Clinicians Facility Department ID 2023-03-02 2023-03-02 Outpatient CARLITOS PACHECO [facility] [id number] Univers 13:30:00 13:30:00 ity [facility] 2022-02-24 2022-02-24 Outpatient Areli [facility] [id number] Univers 13:30:00 13:55:21 ity [facility] 2022-02-24 2022-02-24 Outpatient Areli WILKS CARLITOS [facility] [id number] Univers 13:30:00 13:55:21 ity [facility] 2022-02-24 2022-02-24 Office Carlitos Wilks [facility] [id number] Univers 13:30:00 13:55:21 Visit Joseph ZAMUDIO [id number] it y of [id number] [id number] [facility] [address] Branch 2022-02-24 2022-02-24 Orders Doctor MIA [id number] Univers 00:00:00 00:00:00 Only Unassigned, FABBY [id number] ity of Arnold Line [facility] [id number] [place] as [phone] [facility] 009 Branch 2022-02-17 2022-02-17 Pre Visit AHYLEE Abel [id number] Univers 00:00:00 00:00:00 Outreach Renee QUIROZ [id number] [id number] [phone] [facility] 086 Branch 2022-02-03 2022-02-03 Outpatient Areli [facility] [id number] Univers 14:00:00 14:00:00 ity of [facility] 2021-08-05 2021-08-05 Orders Doctor MIA [id number] Univers 00:00:00 00:00:00 Only Unassigned, FABBY [id number] ity of [place] Line [facility] [id number] [place] as [phone] [address] 2021-03-24 2021-03-24 [facility] [id number] Univers 15:56:33 23:59:00 Encounter Oscar Randall [id number] [id number] [id number] [place] dical nal [address] [facility] 2021-03-24 2021-03-24 Outpatient R LIUDMILA [facility] [id number] Univers 16:00:00 16:00:00 SENDIL ity [facility] 2021-02-24 2021-02-24 Office Liudmila [facility] [id number] Univers 13:42:03 14:19:03 Visit Oscar Randall [id number] ity [facility] [id number] [phone] [place]ical [place] [address] [facility] 2021-02-24 2021-02-24 Outpatient R LIUDMILA [facility] [id number] Univers 14:00:00 14:00:00 SENDIL ity [facility] 2021-01-28 2021-01-28 Office Carlitos Wilks [facility] [id number] 13:58:07 14:38:33 Visit Joseph Zamudio [id number] Women's [id number] Health [phone] [facility] 134 2021-01-28 2021-01-28 Outpatient R CARLITOS WILKS [facility] [id number] Univers 14:00:00 14:00:00 ity of [facility] Results This patient has no known results.
--- NOTE | 2023-04-30 20:57 | RAD REPORT ---
EXAM DESCRIPTION: RAD - Foot Right 3 View - 04/30/2023 8:10 pm CLINICAL HISTORY: PAIN COMPARISON: No comparisons TECHNIQUE: Right foot, 3 views. FINDINGS: No fracture, dislocation or periosteal reaction. Large calcaneal spur. No air or foreign body in the soft tissues. IMPRESSION: No acute osseous abnormality. Large calcaneal spur.
--- NOTE | 2023-04-30 21:17 | ER ---
Nurse's Notes [facility] Name: Rosy Cote Age: 32 yrs Sex: Female : 1990 Arrival Date: 04/30/2023 Time: 19:52 Bed IW2 Private MD: Diagnosis: Pain in right foot Presentation: 04/30 19:59 Chief complaint: Patient states: R foot pain for a couple days, unknown injury. nj Coronavirus screen: Vaccine status: Patient reports receiving the 2nd dose of the covid vaccine. Ebola Screen: Patient denies travel to an Ebola-affected area in the 21 days before illness onset. Initial Sepsis Screen: Does the patient meet any 2 criteria? No. Patient's initial sepsis screen is negative. Does the patient have a suspected source of infection? No. Patient's initial sepsis screen is negative. Risk Assessment: Do you want to hurt yourself or someone else? Patient reports no desire to harm self or others. Onset of symptoms was April 2023. 19:59 Method Of Arrival: Ambulatory [facility] 19:59 Acuity: VITA 3 nj1 Triage Assessment: 20:01 General: Appears in no apparent distress. uncomfortable, Behavior is calm, cooperative, nj1 appropriate for age. Pain: Complains of pain in right foot Pain currently is 8 out of 10 on a pain scale. Neuro: Level of Consciousness is awake, alert, obeys commands, Oriented to person, place, time, situation. Cardiovascular: Patient's skin is warm and dry. Respiratory: Airway is patent Respiratory effort is even, unlabored. Musculoskeletal: Reports pain in right foot. Historical: - Allergies: 20:00 MMR VACCINE; nj1 - PMHx: 20:00 Anemia; Anxiety; depressive disorder; nj1 - PSHx: 20:00 Right foot sx; nj1 - Immunization history:: Client reports receiving the 2nd dose of the Covid vaccine. - Social history:: Smoking status: Patient denies any tobacco usage or history of. Screenin:25 [facility] ED Fall Risk Assessment (Adult) History of falling in the last 3 months, bp including since admission No falls in past 3 months (0 pts). Abuse screen: Denies threats or abuse. Denies injuries from another. Nutritional screening: No deficits noted. Tuberculosis screening: No symptoms or risk factors identified. Vital Signs: 19:59 BP 143 / 80; Pulse 85; Resp 18; Temp 97.9; Pulse Ox 98% on R/A; Weight 127.01 kg; nj1 Height 5 ft. 10 in. ; Pain 8/10; 19:59 Body Mass Index 40.18 (127.01 kg, 177.8 cm) ms1 19:59 Pain Scale: Adult [facility] ED Course: 19:55 Patient arrived in ED. ag3 19:56 Evon Zamudio FNP-C [facility] kb 19:56 Ankush Flores MD is Attending Physician. kb 20:00 Triage completed. ms1 20:01 Arm band placed on right wrist. nj1 20:12 Foot Right 3 View XRAY In Process Unspecified. EDMS 21:25 Patient has correct armband on for positive identification. bp 21:25 No provider procedures requiring assistance completed. Patient did not have IV access bp during this emergency room visit. Administered Medications: No medications were administered Outcome: 21:16 Discharge ordered by MD. kb 21:25 Discharged to home ambulatory, bp 21:25 Condition: stable 21:25 Discharge instructions given to patient, Instructed on discharge instructions, follow up and referral plans. medication usage, Demonstrated understanding of instructions, follow-up care, medications, Prescriptions given X 1, 21:26 Patient left the ED. bp Signatures: Dispatcher [employer] EDMI Evon Zamudio FNP-C FNP-Ckb Peltier, Brian, RN RN Evy Klein 3 Mai Keane RN RN ms1
--- NOTE | 2023-04-30 21:17 | EDPHYS ---
Physician Documentation [facility] Name: Rosy Cote Age: 32 yrs Sex: Female : 1990 Arrival Date: 04/30/2023 Time: 19:52 Bed IW2 Private MD: ED Physician Ankush Flores HPI: 04/30 21:15 This 32 yrs old Female presents to ER via Ambulatory with complaints of Foot Pain. kb 21:15 Patient is a 32-year-old female who presents for right foot pain that started for 5 kb days ago. Denies any injury or trauma. 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 Historical: - Allergies: 20:00 MMR VACCINE; nj1 - PMHx: 20:00 Anemia; Anxiety; depressive disorder; nj1 - PSHx: 20:00 Right foot sx; nj1 - Immunization history:: Client reports receiving the 2nd dose of the Covid vaccine. - Social history:: Smoking status: Patient denies any tobacco usage or history of. ROS: 21:13 Constitutional: Negative for fever, chills, and weight loss, kb 21:13 MS/extremity: Positive for pain, of the dorsum of right foot, 21:13 All other systems are negative, Exam: 21:13 Constitutional: This is a well developed, well nourished patient who is awake, alert, kb and in no acute distress. Head/Face: Normocephalic, atraumatic. ENT: Moist Mucous membranes Respiratory: Respirations even and unlabored. No increased work of breathing. Talking in full sentences Skin: Warm, dry with normal turgor. Normal color. Neuro: Awake and alert, GCS 15, oriented to person, place, time, and situation. Moves all extremities. Normal gait. 21:13 Musculoskeletal/extremity: Extremities: grossly normal except: noted in the dorsum of right foot: pain, tenderness, ROM: intact in all extremities, Circulation is intact in all extremities. Sensation intact. Weight bearing: able to fully bear weight, Vital Signs: 19:59 BP 143 / 80; Pulse 85; Resp 18; Temp 97.9; Pulse Ox 98% on R/A; Weight 127.01 kg; nj1 Height 5 ft. 10 in. ; Pain 8/10; 19:59 Body Mass Index 40.18 (127.01 kg, 177.8 cm) nj1 19:59 Pain Scale: Adult nj1 MDM: 19:56 Patient medically screened. kb 21:15 Differential diagnosis: dislocation, closed fracture, contusion, strain, sprain. Data kb reviewed: vital signs, nurses notes. Counseling: I had a detailed discussion with the patient and/or guardian regarding the historical points, exam findings, and any diagnostic results supporting the discharge/admit diagnosis, radiology results, the need for outpatient follow up, a family practitioner, to return to the emergency department if symptoms worsen or persist or if there are any questions or concerns that arise at home. 04/30 19:58 Order name: Foot Right 3 View XRAY; Complete Time: 21:03 kb Administered Medications: No medications were administered Disposition Summary: 04/30/23 21:16 Discharge Ordered Notes: Location: Home kb Condition: Stable kb Diagnosis - Pain in right foot kb Followup: kb - With: Emergency Department - When: As needed - Reason: Worsening of condition Followup: kb - With: Private Physician - When: 2 - 3 days - Reason: Recheck today's complaints, Continuance of care, Re-evaluation by your physician Discharge Instructions: - Discharge Summary Sheet kb - Foot Sprain kb Forms: - Medication Reconciliation Form kb - Thank You Letter kb - Antibiotic Education kb - Prescription Opioid Use kb - Patient Portal Instructions kb - Leadership Thank You Letter kb Prescriptions: - Diclofenac Sodium 75 mg Oral tablet, delayed release (enteric coated) - take 1 tablet ORAL route 2 times per day As needed; 30 tablet; Refills: 0, kb Product Selection Permitted Addendum: 05/05/2023 07:53 I was immediately available for consultation during this patient's visit. I did not e c2 personally see the patient or guide the patient's care. . Signatures: Dispatcher [employer] Evon Strong FNP-C FNP-Ckb Jaco, Norma, RN RN nj1 Ankush Flores MD MD ec2
[2023-04-30 21:31] VITALS: BP 143/80; TEMP 97.9; O2SAT 98
== END 2023-04-30 21:26 | disposition home or self-care (01) ==
LOC: ER 19:52
DX: M79.671 Pain in right foot (principal); Z88.7 Allergy status to serum and vaccine
CPT/HCPCS: 99283

== ENCOUNTER 2023-12-25 23:37 | Emergency (ER) | payer OTHER ==
--- OUTSIDE RECORDS SUMMARY | 2023-12-25 23:40 | XMS REPORT | Continuity of Care Document ---
Author Name Unknown Address [address] [facility] [address] [place] [address] [facility] thconnect Address [address] [facility] [place] [address] Care Team Providers Care Rubbish Collector Name Role Phone PCP, PATIENT DOES NOT HAVE A Primary Care Physic david CARLITOS Barahona Attending Clinician Carlitos Barahona MD Attending Clinician [phone] Doctor Unassigned, Lupus Attending Clinician U Renee Anguiano MA Attending Clinician Unavailileana Nur MD, Abad K.H. Attending Clinician [phone] ABAD NURH. Attending Clinician Unavailbraden freitas Payers Payer Name Policy Type Policy Number Effective Date Expirati on Date Source [facility] [id number] 2020 00:00:00 Problems Condition Name Condition Details Condition Category Status Onset Date Resolution Date Last Treatment Date Treating Clinician Comments Source Well woman exam with routine gynecologi luis exam Well woman exam with routine gynecologi luis exam Disease Active 01-28 00:00: 00 [facility] Presence of 52 mg levonorges trel-relea sing intrauteri ne device (IUD) Presence of 52 mg levonorges trel-relea sing intrauteri ne device (IUD) Disease Active 01-28 00:00: 00 [facility] Obesity, morbid, BMI 40.0-49.9 Obesity, morbid, BMI 40.0-49.9 Disease Active 01-28 00:00: 00 [facility] Allergies, Adverse Reactions, Alerts Allergy Name Allergy Type Status Severity Reaction(s) Onset Date Inactive Date Treating Clinician Comments Source MEASLES, MUMPS, AND RUBELLA VACCINE LIVE DRUG INGREDI Active Unknown-Cmnt 02-24 00:00: 00 [facility] Measles, Mumps, And Rubella Vaccine Live Propensi ty to adverse reaction s Active Unknown - See comments 02-24 00:00: 00 [facility] Social History Social Habit Start Date Stop Date Quantity Comments Source Exposure to SARS-CoV-2 (event) 2022-02-14 00:00:00 2022-02-24 13:13:[address] [facility] Tobacco use and exposure 2022-02-24 00:00:00 2022-02-24 00:00:00 Smokeless tobacco non-user [facility] Alcohol intake 2022-02-24 00:00:00 2022-02-24 00:00:00 Lifetime non-drinker (finding) [facility] Sex Assigned At 1990 00:00:00 1990 00:00:[address] [facility] Smoking Status Start Date Stop Date Source Never smoked tobacco [facility] Medications Ordered Medication Name Filled Medication Name Start Date Stop Date Current Medication? Ordering Clinician Indication Dosage Frequency Signature (SIG) Comments Components Source nystatin 100,000 unit/gram powder 02-24 00:00: 00 Yes [id number] Apply to area(s) 2 (two) times daily. [facility] Vital Signs Vital Name Observation Time Observation Value Comments S sandra Systolic blood pressure 2022-02-24 18:38:00 115 mm[Hg] [facility] Diastolic blood pressure 2022-02-24 18:38:00 73 mm[Hg] [facility] Heart rate 2022-02-24 18:38:00 97 /min [facility] Body temperature 2022-02-24 18:38:[address] [facility] Respiratory rate 2022-02-24 18:38:00 18 /min [facility] Body height 2022-02-24 18:38:00 177.8 cm [facility] Body weight 2022-02-24 18:38:00 138.347 kg [facility] BMI 2022-02-24 18:38:00 43.76 kg/m2 [facility] Encounters Start Date/Time End Date/Time Encounter Type Admission Type Attending [facility] Facility Care Department Encounter ID Source 2023-03-02 13:30:00 2023-03-02 13:30:00 Outpatient CARLITOS PACHECO [facility] [id number] [facility] 2022-02-24 13:30:00 2022-02-24 13:55:21 Outpatient R CARLITOS WILKS [facility] [id number] [facility] 2022-02-24 13:30:00 2022-02-24 13:55:21 Outpatient CARLITOS PACHECO [facility] [id number] [facility] 2022-02-24 13:30:00 2022-02-24 13:55:21 Office Visit Carlitos Wilks [facility] [id number] [id number] [facility] 2022-02-24 00:00:00 2022-02-24 00:00:00 Orders Only Doctor Unassigned, Lupus [facility] [id number] [facility] 2022-02-17 00:00:00 2022-02-17 00:00:00 Pre Visit Outreach Renee Abel 1.0.114 [id number] [id number] [id number] [facility] 2022-02-03 14:00:00 2022-02-03 14:00:00 Outpatient CARLITOS PACHECO [facility] [id number] [facility] 2021-08-05 00:00:00 2021-08-05 00:00:00 Orders Only Doctor Unassigned, Lupus [facility] [id number] [id number] [facility] 2021-03-24 15:56:33 2021-03-24 23:59:00 Hospital Encounter Abad Nur [facility] [id number] [id number] [id number] [facility] 2021-03-24 16:00:00 2021-03-24 16:00:00 Outpatient R ABAD NUR [facility] [id number] [facility] 2021-02-24 13:42:03 2021-02-24 14:19:03 Office Visit Abad Nur [facility] [id number] [id number] [facility] 2021-02-24 14:00:00 2021-02-24 14:00:00 Outpatient R ABAD NUR [facility] [id number] [facility] 2021-01-28 13:58:07 2021-01-28 14:38:33 Office Visit Carlitos Wilks [facility] [id number] 2021-01-28 14:00:00 2021-01-28 14:00:00 Outpatient R CARLITOS WILKS [facility] [id number] [facility]
--- NOTE | 2023-12-26 01:36 | EDPHYS ---
Physician Documentation [facility] [place] Name: Rosy Cote Age: 33 yrs Sex: Female : 1990 Arrival Date: 12/25/2023 Time: 23:37 Bed IW1 Private MD: ED Physician Murali Camacho HPI: 12/25 00:20 This 33 yrs old Female presents to ER via Ambulatory with complaints of back of leg cp painful unable to bend. 00:20 The patient presents with pain, that is acute. The complaints affect the posterior cp aspect of left knee. Onset: The symptoms/episode began/occurred suddenly, about 2 hours ago, denies injury. 00:20 Associated signs and symptoms: Pertinent negatives calf tenderness, fever, shortness of cp breath. Treatment prior to arrival includes: no previous treatment. 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 - Infectious Disease History:: Denies. - Social history:: Smoking status: Patient denies any tobacco usage or history of. ROS: 00:25 MS/extremity: Positive for pain, of the posterior aspect of left leg, Negative for cp injury or acute deformity, paresthesias, 00:25 Constitutional: Negative for body aches, chills, fever, poor PO intake, cp 00:25 Respiratory: Negative for cough, shortness of breath, wheezing, 00:25 All other systems are negative, Exam: 00:30 Constitutional: The patient appears in no acute distress, alert, awake, cp non-diaphoretic, non-toxic, well developed, well nourished, obese, 00:30 Head/Face: Normocephalic, atraumatic. cp 00:30 Chest/axilla: Inspection: normal, 00:30 Cardiovascular: Rate: normal, Edema: is not appreciated, JVD: is not appreciated, 00:30 Respiratory: the patient does not display signs of respiratory distress, Respirations: normal, no use of accessory muscles, no retractions, labored breathing, is not present, Breath sounds: are clear throughout, no decreased breath sounds, no stridor, no wheezing, 00:30 Musculoskeletal/extremity: Extremities: grossly normal except: noted in the left leg: ecchymosis, pain, tenderness, posterior aspect of left leg above knee area, Vital Signs: 00:08 BP 134 / 70; Pulse 92; Resp 18; Temp 99.5(O); Pulse Ox 97% on R/A; Weight 131.54 kg; tl4 Height 5 ft. 10 in. ; Pain 7/10; 00:08 Body Mass Index 41.61 (131.54 kg, 177.8 cm) tl4 00:08 Pain Scale: Adult tl4 MDM: 00:14 Patient medically screened. cp 00:20 Differential diagnosis: superficial phlebitis, DVT, cellulitis, abscess. cp 01:35 Data reviewed: vital signs, nurses notes, radiologic studies, ultrasound, and as a cp result, I will discharge patient. 01:35 Counseling: I had a detailed discussion with the patient and/or guardian regarding the cp historical points, exam findings, and any diagnostic results supporting the discharge/admit diagnosis, radiology results, to return to the emergency department if symptoms worsen or persist or if there are any questions or concerns that arise at home. 12/25 00:14 Order name: US Extremity Venous Unilateral Ltd cp Administered Medications: No medications were administered Disposition: 20:50 Co-signature as Attending Physician, Murali Camacho MD I agree with the assessment sp4 and plan of care. I reviewed the patient's care provided by the Advanced Practice Provider and agree with the diagnosis and treatment plan. Disposition Summary: 12/26/23 01:35 Discharge Ordered Notes: Location: Home cp Problem: new cp Symptoms: have improved cp Condition: Stable cp Diagnosis - Pain in left leg cp Followup: cp - With: Private Physician - When: 2 - 3 days - Reason: Worsening of condition Discharge Instructions: - Discharge Summary Sheet cp - Musculoskeletal Pain cp Forms: - Medication Reconciliation Form cp - Antibiotic Education cp - Prescription Opioid Use cp - Patient Portal Instructions cp - Leadership Thank You Letter cp Prescriptions: - Ibuprofen 800 mg Oral Tablet - take 1 tablet ORAL route every 8 hours As needed take with food; 30 tablet; cp Refills: 0, Product Selection Permitted Signatures: Dispatcher [employer] EDTX Gregg Camejo PA PA cp Potepalov, Sergey, MD MD sp4 Logdahl, Ambrose, RN RN tl4 Corrections: (The following items were deleted from the chart) 00:11 00:10 PMHx: Nelson cyst (Right foot sx); tl4 tl4
--- NOTE | 2023-12-26 01:36 | ER ---
Nurse's Notes [facility] Name: Rosy Cote Age: 33 yrs Sex: Female : 1990 Arrival Date: 12/25/2023 Time: 23:37 Bed IW1 Private MD: Diagnosis: Pain in left leg Presentation: 12/25 00:08 Chief complaint: Patient states: Pt c/o sudden onset of left posterior leg pain with tl4 bruising and tightness tonight at 2230. Pt states she is unable to bend her left leg. Pt has history of Nelson cyst and states this fells similar but never had bruising. Pt denies trauma/injury. Coronavirus screen: At this time, the client does not indicate any symptoms associated with coronavirus-19. Ebola Screen: No symptoms or risks identified at this time. Initial Sepsis Screen: Does the patient meet any 2 criteria? No. Patient's initial sepsis screen is negative. Does the patient have a suspected source of infection? No. Patient's initial sepsis screen is negative. Risk Assessment: Do you want to hurt yourself or someone else? Patient reports no desire to harm self or others. Onset of symptoms was December 25, 2023 at 22:30. 00:08 Method Of Arrival: Ambulatory tl4 00:08 Acuity: VITA 3 tl4 Triage Assessment: 00:11 General: Appears in no apparent distress. Behavior is calm, cooperative. Pain: tl4 Complains of pain in left leg. EENT: No signs and/or symptoms were reported regarding the EENT system. Neuro: Level of Consciousness is awake, alert, obeys commands, Oriented to person, place, time, situation. Cardiovascular: Capillary refill < 3 seconds Patient's skin is warm and dry. Respiratory: Airway is patent Respiratory effort is even, unlabored, Respiratory pattern is regular, symmetrical. GI: No signs and/or symptoms were reported involving the gastrointestinal system. : No signs and/or symptoms were reported regarding the genitourinary system. Derm: No signs and/or symptoms reported regarding the dermatologic system. Musculoskeletal: Reports pain in left leg. 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 - Infectious Disease History:: Denies. - Social history:: Smoking status: Patient denies any tobacco usage or history of. Screenin:41 [facility] ED Fall Risk Assessment (Adult) History of falling in the last 3 months, ss including since admission No falls in past 3 months (0 pts) Confusion or Disorientation No (0 pts) Intoxicated or Sedated No (0 pts) Impaired Gait No (0 pts) Mobility Assist Device Used No (0 pt) Altered Elimination No (0 pt) Score/Fall Risk Level 0 - 2 = Low Risk Oriented to surroundings, Maintained a safe environment. Abuse screen: Denies threats or abuse. Denies injuries from another. Nutritional screening: No deficits noted. Tuberculosis screening: Never had TB. Assessment: 01:41 General: Appears in no apparent distress. comfortable, Behavior is calm, cooperative. ss Pain: Complains of pain in left leg Pain currently is 7 out of 10 on a pain scale. Neuro: Level of Consciousness is awake, alert, obeys commands, Oriented to person, place, time, situation. Respiratory: Airway is patent Respiratory effort is even, unlabored, Respiratory pattern is regular, symmetrical. Derm: Skin is pink, warm \T\ dry. normal. Vital Signs: 00:08 BP 134 / 70; Pulse 92; Resp 18; Temp 99.5(O); Pulse Ox 97% on R/A; Weight 131.54 kg; tl4 Height 5 ft. 10 in. ; Pain 7/10; 00:08 Body Mass Index 41.61 (131.54 kg, 177.8 cm) tl4 00:08 Pain Scale: Adult tl4 ED Course: 12/24 23:39 Patient arrived in ED. ra3 23:42 Gregg Camejo PA is PHCP. cp 12/25 00:10 Triage completed. tl4 00:12 Arm band placed on right wrist. tl4 00:14 Murali Camacho MD is Attending Physician. cp 00:43 US Extremity Venous Unilateral Ltd In Process Unspecified. EDMS 01:41 Cassandra Herring, RN is Primary Nurse. ss 01:41 Patient has correct armband on for positive identification. ss 01:41 No provider procedures requiring assistance completed. Patient did not have IV access ss during this emergency room visit. Administered Medications: No medications were administered Medication: 01:41 VIS not applicable for this client. ss Outcome: 01:35 Discharge ordered by MD. cp 01:41 Discharged to home ambulatory, 01:41 Condition: good 01:41 Discharge instructions given to patient, Instructed on discharge instructions, follow up and referral plans. medication usage, Demonstrated understanding of instructions, follow-up care, medications, Prescriptions given X 1, 01:43 Patient left the ED. Signatures: Dispatcher [employer] EDNY Cassandra Herring RN RN Gregg Camejo, PA PA Ambrose Linares RN RN tl4 Rivka Lewis ra3 Corrections: (The following items were deleted from the chart) 00:11 00:10 PMHx: Nelson cyst (Right foot sx); tl4 tl4
[2023-12-26 01:58] VITALS: BP 134/70; TEMP 99.5; O2SAT 97
--- NOTE | 2023-12-26 13:12 | RAD REPORT ---
EXAM DESCRIPTION: US - Extremity Venous Uni Ltd - 12/26/2023 12:42 am CLINICAL HISTORY: Female, 33 years old, PAIN COMPARISON: None. TECHNIQUE: Grayscale and color/spectral Doppler ultrasound of the left lower extremity. FINDINGS: Normal flow and compressibility in the common femoral, greater saphenous, femoral, poplite al, peroneal and posterior tibial veins. No intraluminal thrombus is visualized. Visualized waveforms demonstrate normal respiratory variability. Normal augmentation where anatomically accessible. IMPRESSION: No sonographic evidence of deep venous thrombosis in the imaged left lower extremity. Electronically signed by: Sampson Potts MD 12/26/2023 01:07 AM CDT RP Due to temporary technical issues with the PACS/Fluency reporting system, reports are being signed by the in house radiologist without review as a courtesy to ensure prompt reporting. The interpreting r adiologist is fully responsible for the content of the report.
== END 2023-12-26 01:43 | disposition home or self-care (01) ==
LOC: ER 23:37
DX: M79.605 Pain in left leg (principal)
CPT/HCPCS: 93971; 99283